=== PATIENT | male | born 1960 | race African-American/Black ===

== ENCOUNTER 2017-07-25 15:12 | Emergency (ER) | payer MEDICAID ==
[~2017-07-25] VITALS: Ht 177.8 cm; Wt 150.0 kg
[~2017-07-25 15:12] MED LIST: ASPI-1158; BENZ1TAB7; FURO40TA5 PO; OMEP20CA10 PO; POTA20TA82 PO; THIO100T
[2017-07-25 17:29] LABS: CHLORIDE 103 mEq/L (98-107); EOSINOPHILS % 0.7 % (0.0-5.0); HEMATOCRIT. 36.3 % (42.0-52.0); HEMOGLOBIN. 12.4 g/dL (14.0-18.0); MEAN CORPUSCULAR HEMOGLOBIN 28.6 pg (28.0-32.0); MEAN PLATELET VOLUME 7.4 fl (7.4-10.4); MONOCYTES % 9.3 % (2.0-8.0); PLATELET 297 x1000/uL (130-400); RED BLOOD CELL COUNT 4.32 mill/uL (4.7-6.1); RED CELL DISTRIBUTION WIDTH 14.9 % (11.6-14.6)
[2017-07-25 17:33] LABS: CARBON DIOXIDE 28 mEq/L (21-32)
[2017-07-25 17:39] LABS: TROPONIN I < 0.02 ng/mL (0.00-0.04)
[2017-07-25 20:09] VITALS: BP 137/80
== END 2017-07-25 20:44 | disposition home or self-care (01) ==
LOC: ER 15:30
DX: R55 Syncope and collapse (principal); M25.562 Pain in left knee; M25.561 Pain in right knee; I10 Essential (primary) hypertension; E78.00 Pure hypercholesterolemia, unspecified; I44.0 Atrioventricular block, first degree; D64.9 Anemia, unspecified; Z79.82 Long term (current) use of aspirin; E66.01 Morbid (severe) obesity due to excess calories; Z68.42 Body mass index [BMI] 45.0-49.9, adult; W01.0XXA Fall on same level from slipping, tripping and stumbling without subsequent striking against object, initial encounter; Y92.018 Other place in single-family (private) house as the place of occurrence of the external cause
CPT/HCPCS: 36415; 71045; 80053; 83880; 84484; 85025; 93005; 99285; Z7610

== ENCOUNTER 2018-06-25 11:47 | Inpatient (IN) | payer MEDICAID ==
[~2018-06-25] VITALS: Ht 182.9 cm; Wt 169.2 kg
[~2018-06-25 11:47] MED LIST changes: -ASPI-1158; +ASPI-1158 PO; -BENZ1TAB7; +BENZ1TAB7 PO; -THIO100T; +THIO100T PO
[2018-06-25 12:47] LABS: HEMATOCRIT. 39.4 % (42.0-52.0); HEMOGLOBIN. 13.1 g/dL (14.0-18.0); MEAN CORPUSCULAR HEMOGLOBIN 28.5 pg (28.0-32.0); MEAN CORPUSCULAR VOLUME 85.9 fL (80.0-94.0); MEAN PLATELET VOLUME 7.4 fl (7.4-10.4); PLATELET 240 x1000/uL (130-400); RED BLOOD CELL COUNT 4.58 mill/uL (4.7-6.1); RED CELL DISTRIBUTION WIDTH 14.5 % (11.6-14.6)
[2018-06-25 12:50] LABS: CHLORIDE 104 mEq/L (98-107)
[2018-06-25 12:53] LABS: ETHANOL BLOOD < 10 mg/dL
[2018-06-25 12:58] LABS: CREATINE KINASE 93 IU/L (39-308); CREATINE KINASE MB FRACTION < 1.0 ng/mL (0.5-3.6)
[2018-06-25 13:00] LABS: BETA HYDROXYBUTYRATE 0.1 mMol/L (0.0-0.3)
[2018-06-25 13:04] LABS: INR 1.1; PROTHROMBIN TIME 11.3 sec (9.1-11.1)
[2018-06-25 13:18] LABS: PLATELET ESTIMATE NORMAL
[2018-06-25] MEDS ORDERED: VANCOMYCIN 1 G PREMIX 200 ML IV SCH (14:00)
[2018-06-25] MEDS ORDERED: PIPERACILLIN/TAZ 3.375G PREMIX 50 ML IV ONE (14:00)
[2018-06-25] MEDS: LORAZEPAM 2MG/ML CPJ IV ONE ×2 (14:27→14:28)
[2018-06-25 14:34] LABS: CLARITY URINE CLEAR (CLEAR); COLOR URINE YELLOW (YELLOW); KETONES URINE NEGATIVE (NEGATIVE); LEUKOCYTE ESTERASE URINE NEGATIVE (NEGATIVE); NITRITE URINE NEGATIVE (NEGATIVE); OCCULT BLOOD URINE NEGATIVE (NEGATIVE); PROTEIN URINE NEGATIVE (NEGATIVE); SPECIFIC GRAVITY URINE 1.019 (1.005-1.030)
[2018-06-25 14:51] LABS: *AMPHETAMINES SCREEN URINE NEGATIVE (NEGATIVE); *BARBITURATES SCREEN URINE NEGATIVE (NEGATIVE); *BENZODIAZEPINES SCREEN URINE NEGATIVE (NEGATIVE); *COCAINE SCREEN URINE NEGATIVE (NEGATIVE); METHADONE URINE SCREEN NEGATIVE (NEGATIVE); OPIATES URINE SCREEN NEGATIVE (NEGATIVE)
[2018-06-25 14:52] LABS: CANNABINOID URINE SCREEN NEGATIVE (NEGATIVE); PHENCYCLIDINE URINE SCREEN PRESUMTIVE POSITIVE (NEGATIVE)
[2018-06-25 15:45] VITALS: BP 105/70
[2018-06-25 16:00] VITALS: BP 101/60
[2018-06-25 16:33] VITALS: BP 101/60
[2018-06-25 18:00] VITALS: BP 101/60
[2018-06-25] MEDS ORDERED: INFLUENZA VIRUS VACCINE(AFLURIA) 0.5ML SYR IM ONE (18:15)
[2018-06-25] MEDS ORDERED: PNEUMOCOCCAL 23-VAL P-SAC VAC 0.5 ML IM ONE (18:15)
[2018-06-25 20:00] VITALS: BP 113/61
[2018-06-25 22:32] LABS: HEPATITIS B SURFACE ANTIGEN NEGATIVE
[2018-06-25 23:02] LABS: HEPATITIS A AB IGM NEGATIVE (NEGATIVE)
[2018-06-26] VITALS: BP 110/70
[2018-06-26] MEDS ORDERED: DEXTROSE 50% WATER 50ML SYRINGE IV PRN
[2018-06-26] MEDS: SODIUM CHLORIDE 0.9% 1,000 ML IV SCH ×2 (00:52→13:30)
[2018-06-26 04:00] VITALS: BP 112/68
[2018-06-26] MEDS: BLOOD SUGAR DIAGNOSTIC STRIP TEST SCH ×2 (05:57→12:54)
[2018-06-26 06:44] LABS: HEMATOCRIT. 35.1 % (42.0-52.0); HEMOGLOBIN. 11.9 g/dL (14.0-18.0); MEAN CORPUSCULAR HEMOGLOBIN 28.9 pg (28.0-32.0); MEAN PLATELET VOLUME 7.8 fl (7.4-10.4); PLATELET 210 x1000/uL (130-400); RED BLOOD CELL COUNT 4.13 mill/uL (4.7-6.1)
[2018-06-26 06:57] LABS: CHLORIDE 105 mEq/L (98-107)
[2018-06-26 07:04] LABS: LDL CHOLESTEROL 38 mg/dL (5-100)
[2018-06-26 07:07] LABS: HDL CHOLESTEROL 54 mg/dL (40-59)
[2018-06-26 08:00] VITALS: BP 123/56
[2018-06-26] MEDS: INSULIN LISPRO 100 UNITS/ML SUBCUT SCH ×2 (08:10→12:54)
[2018-06-26] MEDS: ENOXAPARIN 40MG/0.4ML SYR SUBCUT SCH ×2 (09:57→21:28)
[2018-06-26] MEDS: ONDANSETRON HCL 4MG/2ML INJ IV PRN (10:08)
[2018-06-26] MEDS ORDERED: POTASSIUM CHLORIDE 10MEQ TABLET SR PO SCH (10:15)
[2018-06-26 11:28] LABS: PLATELET ESTIMATE NORMAL
[2018-06-26 16:00] VITALS: BP 95/59
[2018-06-26] MEDS ORDERED: HYDROCODONE/ACETAMINOPHEN 5/325MG TABLET PO PRN (16:00)
[2018-06-26] MEDS: PANTOPRAZOLE SODIUM 40 MG/VIAL IV SCH (16:40)
[2018-06-26] MEDS ORDERED: VANCOMYCIN 2,000 MG in DEXT 5% WATER 500 ML IV SCH (18:00)
[2018-06-26 20:00] VITALS: BP 117/59
[2018-06-26] MEDS ORDERED: INSULIN GLARGINE UD 100 UNITS/ML SYR SUBCUT SCH ×2 (21:00→22:00)
[2018-06-27] VITALS: BP 115/60
[2018-06-27] MEDS: ONDANSETRON HCL 4MG/2ML INJ IV PRN ×2 (00:05→06:03)
[2018-06-27] MEDS: SILVER SULFADIAZINE 1% CREAM 25GM TOP SCH ×2 (00:09→08:22)
[2018-06-27] MEDS: SODIUM CHLORIDE 0.9% 1,000 ML IV SCH ×2 (02:00→14:30)
[2018-06-27] MEDS: LINEZOLID 600 MG PREMIX 300 ML IV SCH ×2 (03:24→18:21)
[2018-06-27 04:00] VITALS: BP 109/67
[2018-06-27 06:41] LABS: HEMOGLOBIN. 11.9 g/dL (14.0-18.0); MEAN CORPUSCULAR HEMOGLOBIN 28.9 pg (28.0-32.0); MEAN CORPUSCULAR VOLUME 87.8 fL (80.0-94.0); PLATELET 204 x1000/uL (130-400); RED CELL DISTRIBUTION WIDTH 14.9 % (11.6-14.6)
[2018-06-27 06:47] LABS: CHLORIDE 106 mEq/L (98-107)
[2018-06-27 08:00] VITALS: BP 117/60
[2018-06-27] MEDS: ENOXAPARIN 40MG/0.4ML SYR SUBCUT SCH ×2 (08:20→20:50)
[2018-06-27] MEDS: PANTOPRAZOLE SODIUM 40 MG/VIAL IV SCH (08:20)
[2018-06-27 12:31] VITALS: BP 113/60
[2018-06-27 16:52] VITALS: BP 128/71
[2018-06-27 20:00] VITALS: BP 121/68
[2018-06-28] VITALS: BP 141/63
[2018-06-28 04:00] VITALS: BP 138/61
[2018-06-28] MEDS: LINEZOLID 600 MG PREMIX 300 ML IV SCH (06:22)
[2018-06-28] MEDS: SODIUM CHLORIDE 0.9% 1,000 ML IV SCH ×2 (06:27→14:36)
[2018-06-28 06:30] LABS: BASOPHILS % 1.1 % (0.0-2.0); EOSINOPHILS % 3.4 % (0.0-5.0); HEMATOCRIT. 33.9 % (42.0-52.0); HEMOGLOBIN. 11.3 g/dL (14.0-18.0); LYMPHOCYTES % 12.5 % (20.0-50.0); MEAN CORPUSCULAR HEMOGLOBIN 28.6 pg (28.0-32.0); MEAN CORPUSCULAR VOLUME 85.8 fL (80.0-94.0); MEAN PLATELET VOLUME 8.1 fl (7.4-10.4); MONOCYTES % 9.9 % (2.0-8.0); NEUTROPHILS % 73.1 % (40.0-76.0); PLATELET 211 x1000/uL (130-400); RED BLOOD CELL COUNT 3.95 mill/uL (4.7-6.1); RED CELL DISTRIBUTION WIDTH 14.9 % (11.6-14.6)
[2018-06-28 06:38] LABS: CHLORIDE 109 mEq/L (98-107)
[2018-06-28 08:00] VITALS: BP 120/51
[2018-06-28] MEDS: PANTOPRAZOLE SODIUM 40 MG/VIAL IV SCH (09:11)
[2018-06-28] MEDS: ENOXAPARIN 40MG/0.4ML SYR SUBCUT SCH ×2 (09:12→20:31)
[2018-06-28] MEDS: SILVER SULFADIAZINE 1% CREAM 25GM TOP SCH (09:13)
[2018-06-28 12:00] VITALS: BP 132/66
[2018-06-28] MEDS: CEFTRIAXONE 2 G in DEXT 5% WATER 100 ML IV SCH (14:26)
[2018-06-28 16:00] VITALS: BP 132/66
[2018-06-28 20:00] VITALS: BP 114/60
[2018-06-28] MEDS ORDERED: IOHEXOL-300 100 ML BOTTLE ONE (22:09)
[2018-06-29] VITALS: BP 122/67
[2018-06-29 04:00] VITALS: BP 142/52
[2018-06-29] MEDS: SODIUM CHLORIDE 0.9% 1,000 ML IV SCH ×2 (04:00→12:33)
[2018-06-29 06:23] LABS: BASOPHILS % 0.7 % (0.0-2.0); EOSINOPHILS % 2.7 % (0.0-5.0); HEMATOCRIT. 34.7 % (42.0-52.0); HEMOGLOBIN. 11.6 g/dL (14.0-18.0); LYMPHOCYTES % 15.8 % (20.0-50.0); MEAN CORPUSCULAR HEMOGLOBIN 28.4 pg (28.0-32.0); MEAN CORPUSCULAR VOLUME 84.9 fL (80.0-94.0); MEAN PLATELET VOLUME 7.5 fl (7.4-10.4); MONOCYTES % 11.3 % (2.0-8.0); NEUTROPHILS % 69.5 % (40.0-76.0); PLATELET 244 x1000/uL (130-400); RED BLOOD CELL COUNT 4.08 mill/uL (4.7-6.1); RED CELL DISTRIBUTION WIDTH 14.7 % (11.6-14.6)
[2018-06-29 06:36] LABS: CHLORIDE 109 mEq/L (98-107)
[2018-06-29 07:33] LABS: PLATELET ESTIMATE NORMAL
[2018-06-29 08:00] VITALS: BP 115/56
[2018-06-29] MEDS: SILVER SULFADIAZINE 1% CREAM 25GM TOP SCH (08:47)
[2018-06-29] MEDS: PANTOPRAZOLE SODIUM 40 MG/VIAL IV SCH (08:47)
[2018-06-29] MEDS: ENOXAPARIN 40MG/0.4ML SYR SUBCUT SCH ×2 (08:47→21:05)
[2018-06-29] MEDS: CEFTRIAXONE 2 G in DEXT 5% WATER 100 ML IV SCH (08:47)
[2018-06-29 12:00] VITALS: BP 110/59
[2018-06-29] MEDS ORDERED: POTASSIUM CHLORIDE 20MEQ/PACKET PO ONE (12:15)
[2018-06-29] MEDS ORDERED: POTASSIUM CHLORIDE INJ 40 MEQ in DEXT 5% WATER 500 ML IV NR (14:00)
[2018-06-29 16:00] VITALS: BP 145/70
[2018-06-29] MEDS ORDERED: BISACODYL 10MG SUPP PR PRN (17:15)
[2018-06-29] MEDS ORDERED: SIMV20TA6 PO (17:30)
[2018-06-29] MEDS ORDERED: DOCU-276 PO (17:30)
[2018-06-29] MEDS ORDERED: HYDR12.529 PO (17:30)
[2018-06-29 20:00] VITALS: BP 123/57
[2018-06-30] VITALS: BP 117/64
[2018-06-30 04:00] VITALS: BP 132/50
[2018-06-30] MEDS: SODIUM CHLORIDE 0.9% 1,000 ML IV SCH ×2 (05:44→20:40)
[2018-06-30 08:00] VITALS: BP 136/46
[2018-06-30] MEDS: FAMOTIDINE 20MG/2ML VIAL IV SCH ×2 (08:28→20:40)
[2018-06-30] MEDS: ENOXAPARIN 40MG/0.4ML SYR SUBCUT SCH ×2 (08:28→20:40)
[2018-06-30] MEDS: SILVER SULFADIAZINE 1% CREAM 25GM TOP SCH (08:29)
[2018-06-30 09:35] LABS: BASOPHILS % 1.1 % (0.0-2.0); EOSINOPHILS % 2.9 % (0.0-5.0); HEMOGLOBIN. 11.8 g/dL (14.0-18.0); LYMPHOCYTES % 17.7 % (20.0-50.0); MEAN CORPUSCULAR HEMOGLOBIN 28.7 pg (28.0-32.0); MEAN CORPUSCULAR VOLUME 85.1 fL (80.0-94.0); MEAN PLATELET VOLUME 7.9 fl (7.4-10.4); MONOCYTES % 11.4 % (2.0-8.0); NEUTROPHILS % 66.9 % (40.0-76.0); PLATELET 247 x1000/uL (130-400); RED BLOOD CELL COUNT 4.11 mill/uL (4.7-6.1); RED CELL DISTRIBUTION WIDTH 14.2 % (11.6-14.6)
[2018-06-30 10:02] LABS: CHLORIDE 110 mEq/L (98-107)
[2018-06-30 12:00] VITALS: BP 104/48
[2018-06-30] MEDS: CEFTRIAXONE 2 G in DEXTROSE 5% WATER 50 ML IV SCH (12:58)
[2018-06-30] MEDS ORDERED: POTASSIUM CHLORIDE INJ 40 MEQ in DEXT 5% WATER 250 ML IV NR (14:00)
[2018-06-30 16:01] VITALS: BP 113/54
[2018-06-30 20:00] VITALS: BP 125/55
[2018-07-01] VITALS: BP 128/61
[2018-07-01 04:00] VITALS: BP 145/59
[2018-07-01] MEDS ORDERED: POTASSIUM CHLORIDE 20MEQ TABLET SR PO SCH (05:00)
[2018-07-01] MEDS: SODIUM CHLORIDE 0.9% 1,000 ML IV SCH (05:12)
[2018-07-01 08:00] VITALS: BP 152/55
[2018-07-01] MEDS: FAMOTIDINE 20MG/2ML VIAL IV SCH (09:03)
[2018-07-01] MEDS: ENOXAPARIN 40MG/0.4ML SYR SUBCUT SCH (09:04)
[2018-07-01] MEDS: SILVER SULFADIAZINE 1% CREAM 25GM TOP SCH (09:04)
[2018-07-01] MEDS: CEFTRIAXONE 2 G in DEXTROSE 5% WATER 50 ML IV SCH (11:09)
[2018-07-01 12:25] VITALS: BP 141/66
[2018-07-01 14:46] VITALS: BP 141/66
== END 2018-07-01 17:23 | disposition home health service (06) | DRG 720 ==
LOC: ER 11:53 → 7WST 14:02 → EDBEDREQ 14:06 → ENRESERV 15:17
PROVIDERS: ADMIT Internal Medicine; ATTEND Internal Medicine
PROC: 02HV33Z Insertion of Infusion Device into Superior Vena Cava, Percutaneous Approach (ICD-10-PCS; principal; 2018-06-30)
PROC: B518ZZA Fluoroscopy of Superior Vena Cava, Guidance (ICD-10-PCS; 2018-06-30)
PROC: B548ZZA Ultrasonography of Superior Vena Cava, Guidance (ICD-10-PCS; 2018-06-30)
DX: A40.1 Sepsis due to streptococcus, group B (principal); G93.41 Metabolic encephalopathy; N17.9 Acute kidney failure, unspecified; E46 Unspecified protein-calorie malnutrition; K56.7 Ileus, unspecified; E27.8 Other specified disorders of adrenal gland; I11.0 Hypertensive heart disease with heart failure; I50.9 Heart failure, unspecified; E66.01 Morbid (severe) obesity due to excess calories; E11.65 Type 2 diabetes mellitus with hyperglycemia; I87.2 Venous insufficiency (chronic) (peripheral); E87.6 Hypokalemia; E78.5 Hyperlipidemia, unspecified; B35.1 Tinea unguium; F16.10 Hallucinogen abuse, uncomplicated; J45.909 Unspecified asthma, uncomplicated; D64.9 Anemia, unspecified; K76.9 Liver disease, unspecified; K80.20 Calculus of gallbladder without cholecystitis without obstruction; E78.00 Pure hypercholesterolemia, unspecified; N28.1 Cyst of kidney, acquired; M17.11 Unilateral primary osteoarthritis, right knee; Z68.43 Body mass index [BMI] 50.0-59.9, adult; Z79.899 Other long term (current) drug therapy; Z71.3 Dietary counseling and surveillance; Z79.82 Long term (current) use of aspirin
CPT/HCPCS: 36415; 36569; 71045; 73562; 74018; 74178; 76700; 76937; 77001; 80048; 80061; 80305; 82010; 82140; 82550; 82553; 82962; 83036; 83605; 83735; 83880; 84132; 84145; 84443; 84484; 86705; 86709; 86803; 87077; 87186; 87340; 90686; 90732; 93005; 93306; 93970; 96365; 96367; 97116; 97162; 97530; 99285; C1725; C9113; G0482; J0696; J1650; J1815; J2020; J2405; J2543; J3370; J3480; J3490; J7030; J7060; Q9967

== ENCOUNTER 2018-07-06 20:02 | Inpatient (IN) | payer MEDICAID ==
[~2018-07-06] VITALS: Ht 188 cm; Wt 159.7 kg
[2018-07-06 04:30] VITALS: BP 150/76
[~2018-07-06 20:02] MED LIST changes: +DOCU-276 PO; +SIMV20TA6 PO
[2018-07-06 22:12] LABS: BASOPHILS % 1.2 % (0.0-2.0); EOSINOPHILS % 1.5 % (0.0-5.0); HEMATOCRIT. 34.7 % (42.0-52.0); HEMOGLOBIN. 11.6 g/dL (14.0-18.0); LYMPHOCYTES % 14.7 % (20.0-50.0); MEAN CORPUSCULAR HEMOGLOBIN 28.3 pg (28.0-32.0); MEAN CORPUSCULAR VOLUME 84.7 fL (80.0-94.0); MEAN PLATELET VOLUME 7.3 fl (7.4-10.4); MONOCYTES % 8.2 % (2.0-8.0); NEUTROPHILS % 74.4 % (40.0-76.0); PLATELET 371 x1000/uL (130-400); RED CELL DISTRIBUTION WIDTH 14.8 % (11.6-14.6)
[2018-07-06 22:15] LABS: CHLORIDE 108 mEq/L (98-107)
[2018-07-06 22:17] LABS: INR 1.1; PARTIAL THROMBOPLASTIN TIME 24.8 sec (23.4-31.0)
[2018-07-06 22:21] LABS: ETHANOL BLOOD < 10 mg/dL
[2018-07-06] MEDS ORDERED: KCL 20MEQ/100ML PREMIX 100 ML IV ONE (22:45)
[2018-07-06] MEDS ORDERED: POTASSIUM CHLORIDE 20MEQ TABLET SR PO ONE (22:45)
[2018-07-06] MEDS ORDERED: MAGNESIUM/ALUMINUM HYDROXIDE/SIMETHICONE 30ML UDC PO PRN (23:15)
[2018-07-06] MEDS ORDERED: IPRATROPIUM/ALBUTEROL 0.5-3(2.5)MG/3ML NEB INH PRN (23:15)
[2018-07-06] MEDS ORDERED: ONDANSETRON HCL 4MG/2ML INJ IV PRN (23:15)
[2018-07-06] MEDS ORDERED: CLONIDINE 0.1MG TABLET PO PRN (23:15)
[2018-07-07] VITALS (60 sets, daily range): BP systolic 52–201; BP diastolic 35–124
[2018-07-07] MEDS ORDERED: LORAZEPAM 2MG/ML CPJ IV PRN ×2 (06:45→08:00)
[2018-07-07] MEDS: PANTOPRAZOLE SODIUM 40 MG/VIAL IV SCH (08:01)
[2018-07-07] MEDS: PROPOFOL 10MG/ML 100ML 100 ML IV PRN ×2 (08:02→12:36)
[2018-07-07 08:07] LABS: EOSINOPHILS % 0.1 % (0.0-5.0); HEMATOCRIT. 35.6 % (42.0-52.0); HEMOGLOBIN. 11.8 g/dL (14.0-18.0); LYMPHOCYTES % 7.2 % (20.0-50.0); MEAN CORPUSCULAR HEMOGLOBIN 28.1 pg (28.0-32.0); MEAN CORPUSCULAR VOLUME 84.9 fL (80.0-94.0); MEAN PLATELET VOLUME 6.8 fl (7.4-10.4); MONOCYTES % 6.9 % (2.0-8.0); NEUTROPHILS % 84.8 % (40.0-76.0); PLATELET 348 x1000/uL (130-400); RED BLOOD CELL COUNT 4.19 mill/uL (4.7-6.1); RED CELL DISTRIBUTION WIDTH 14.8 % (11.6-14.6)
[2018-07-07 08:12] LABS: CHLORIDE 109 mEq/L (98-107)
[2018-07-07 08:16] LABS: BG CARBOXYHEMOGLOBIN 0.2 % (0.5-1.5); BG DEOXYHEMOGLOBIN 1.1 % (0.0-5.0); BG FRACTION INSPIRED OXYGEN 100; BG HCO3 ACT 29.8 mmol/L (22.0-26.0); BG METHEMOGLOBIN 0.3 % (0.0-1.5); BG OXYGEN SATURATION 98.9 % (92.0-98.5); BG OXYHEMOGLOBIN 98.4 % (94.0-97.0); BG PH 7.439 (7.350-7.450); BG PO2 216.8 mmHg (75.0-100.0); BG SAMPLE SITE RIGHT BRACHIAL; BG TIDAL VOLUME(mL) 500 mL; BG TOTAL HEMOGLOBIN 12.2 g/dL (12.0-18.0); BG VENT MODE VENT - A/C; BG VENT RATE 16 set
[2018-07-07 08:20] LABS: LDL CHOLESTEROL 73 mg/dL (5-100)
[2018-07-07 08:21] LABS: CREATINE KINASE 202 IU/L (39-308); HDL CHOLESTEROL 42 mg/dL (40-59)
[2018-07-07] MEDS ORDERED: ENOXAPARIN 40MG/0.4ML SYR SUBCUT SCH (09:00)
[2018-07-07] MEDS ORDERED: NOREPINEPHRINE 8 MG in DEXT 5% WATER 242 ML IV PRN (09:30)
[2018-07-07] MEDS ORDERED: POTASSIUM CHLORIDE 20MEQ/PACKET PO NR ×3 (09:30→16:30)
[2018-07-07 10:02] LABS: PHOSPHORUS 3.4 mg/dL (2.5-4.9)
[2018-07-07] MEDS ORDERED: INSULIN LISPRO 100 UNITS/ML SUBCUT SCH ×2 (10:30)
[2018-07-07] MEDS ORDERED: BLOOD SUGAR DIAGNOSTIC STRIP TEST SCH ×2 (10:30)
[2018-07-07] MEDS ORDERED: DEXTROSE 50% WATER 50ML SYRINGE IV PRN (10:30)
[2018-07-07] MEDS ORDERED: POTASSIUM CHLORIDE INJ 40 MEQ in DEXT 5% WATER 250 ML IV SCH (11:00)
[2018-07-07 11:20] LABS: CLARITY URINE CLOUDY (CLEAR); COLOR URINE YELLOW (YELLOW); KETONES URINE TRACE (NEGATIVE); LEUKOCYTE ESTERASE URINE NEGATIVE (NEGATIVE); NITRITE URINE NEGATIVE (NEGATIVE); OCCULT BLOOD URINE 1+ (NEGATIVE); PROTEIN URINE 2+ (NEGATIVE); SPECIFIC GRAVITY URINE 1.022 (1.005-1.030)
[2018-07-07] MEDS: INSULIN LISPRO 100 UNITS/ML SUBCUT SCH ×2 (11:23→18:00)
[2018-07-07] MEDS: BLOOD SUGAR DIAGNOSTIC STRIP TEST SCH ×2 (11:23→18:00)
[2018-07-07] MEDS: METRONIDAZOLE 500 MG PREMIX 100 ML IV SCH ×2 (11:29→20:26)
[2018-07-07] MEDS: CEFEPIME 1,000 MG in DEXTROSE 5% WATER 50 ML IV SCH ×2 (11:29→22:47)
[2018-07-07] MEDS: IPRATROPIUM/ALBUTEROL 0.5-3(2.5)MG/3ML NEB HHN PRN ×3 (12:25→20:16)
[2018-07-07 12:31] LABS: *AMPHETAMINES SCREEN URINE NEGATIVE (NEGATIVE); *BARBITURATES SCREEN URINE NEGATIVE (NEGATIVE); *BENZODIAZEPINES SCREEN URINE NEGATIVE (NEGATIVE); *COCAINE SCREEN URINE NEGATIVE (NEGATIVE)
[2018-07-07 12:32] LABS: CANNABINOID URINE SCREEN NEGATIVE (NEGATIVE); METHADONE URINE SCREEN NEGATIVE (NEGATIVE); OPIATES URINE SCREEN NEGATIVE (NEGATIVE); PHENCYCLIDINE URINE SCREEN PRESUMTIVE POSITIVE (NEGATIVE)
[2018-07-07] MEDS ORDERED: EPINEPHRINE 0.1MG/ML (1:10,000) 10ML SYR ONE (15:19)
[2018-07-07] MEDS ORDERED: SODIUM BICARBONATE 8.4% 1 MEQ/ML 50ML SYR IV ONE (15:19)
[2018-07-07] MEDS ORDERED: METRONIDAZOLE 500 MG PREMIX 100 ML IV SCH (16:00)
[2018-07-07] MEDS ORDERED: LEVETIRACETAM 500 MG in SODIUM CHLORIDE 0.9% 100 ML IV SCH (16:00)
[2018-07-07] MEDS ORDERED: MAGNESIUM 2 G PREMIX 50 ML IV NR (16:00)
[2018-07-07 16:08] LABS: CREATINE KINASE MB FRACTION 4.7 ng/mL (0.5-3.6)
[2018-07-07 16:31] LABS: HEPATITIS B SURFACE ANTIGEN NEGATIVE
[2018-07-07] MEDS: ENOXAPARIN 40MG/0.4ML SYR SUBCUT SCH (16:47)
[2018-07-07] MEDS ORDERED: POTASSIUM CHLORIDE INJ 40 MEQ in DEXT 5% WATER 250 ML IV NR (17:00)
[2018-07-07 17:01] LABS: HEPATITIS A AB IGM NEGATIVE (NEGATIVE)
[2018-07-07] MEDS: MULTIVITAMINS,THER W-MINERALS TABLET PO SCH (18:23)
[2018-07-07] MEDS: THIAMINE HCL 100MG TABLET PO SCH (18:23)
[2018-07-07] MEDS: FOLIC ACID 1MG TABLET PO SCH (18:23)
[2018-07-07] MEDS ORDERED: PHENYTOIN SODIUM 1,000 MG in SODIUM CHLORIDE 0.9% 100 ML IV NR (20:00)
[2018-07-07] MEDS ORDERED: ATROPINE SULFATE 1MG/10ML SYR IV ONE (20:15)
[2018-07-07] MEDS: IPRATROPIUM/ALBUTEROL 0.5-3(2.5)MG/3ML NEB HHN SCH (20:16)
[2018-07-07] MEDS ORDERED: ATROPINE SULFATE 1MG/10ML SYR IV NR (20:30)
[2018-07-07] MEDS ORDERED: LEVETIRACETAM 1,000 MG in SODIUM CHLORIDE 0.9% 100 ML IV SCH (21:00)
[2018-07-07] MEDS: LEVETIRACETAM 1,000 MG in SODIUM CHLORIDE 0.9% 100 ML IV SCH (22:34)
[2018-07-08] VITALS (69 sets, daily range): BP systolic 95–157; BP diastolic 46–87
[2018-07-08] MEDS: IPRATROPIUM/ALBUTEROL 0.5-3(2.5)MG/3ML NEB HHN SCH ×3 (01:19→14:33)
[2018-07-08] MEDS ORDERED: POTASSIUM CHLORIDE INJ 40 MEQ in DEXT 5% WATER 250 ML IV NR (02:00)
[2018-07-08] MEDS: METRONIDAZOLE 500 MG PREMIX 100 ML IV SCH ×3 (03:47→20:52)
[2018-07-08] MEDS: PROPOFOL 10MG/ML 100ML 100 ML IV PRN ×4 (04:14→22:42)
[2018-07-08 05:33] LABS: BASOPHILS % 1.2 % (0.0-2.0); EOSINOPHILS % 0.4 % (0.0-5.0); HEMATOCRIT. 34.3 % (42.0-52.0); HEMOGLOBIN. 11.2 g/dL (14.0-18.0); LYMPHOCYTES % 14.9 % (20.0-50.0); MEAN CORPUSCULAR VOLUME 85.6 fL (80.0-94.0); MEAN PLATELET VOLUME 7.1 fl (7.4-10.4); MONOCYTES % 10.3 % (2.0-8.0); NEUTROPHILS % 73.2 % (40.0-76.0); PLATELET 330 x1000/uL (130-400); RED CELL DISTRIBUTION WIDTH 14.7 % (11.6-14.6)
[2018-07-08 05:43] LABS: CHLORIDE 112 mEq/L (98-107)
[2018-07-08] MEDS: INSULIN LISPRO 100 UNITS/ML SUBCUT SCH ×4 (06:00→18:00)
[2018-07-08] MEDS: BLOOD SUGAR DIAGNOSTIC STRIP TEST SCH ×4 (06:59→18:46)
[2018-07-08] MEDS ORDERED: KCL 20MEQ/100ML PREMIX 100 ML IV NR (08:00)
[2018-07-08] MEDS: THIAMINE HCL 100MG TABLET PO SCH (08:56)
[2018-07-08] MEDS: LEVETIRACETAM 1,000 MG in SODIUM CHLORIDE 0.9% 100 ML IV SCH ×2 (08:56→22:21)
[2018-07-08] MEDS: ENOXAPARIN 40MG/0.4ML SYR SUBCUT SCH ×2 (08:56→22:20)
[2018-07-08] MEDS: PANTOPRAZOLE SODIUM 40 MG/VIAL IV SCH (08:56)
[2018-07-08] MEDS: MULTIVITAMINS,THER W-MINERALS TABLET PO SCH (08:56)
[2018-07-08] MEDS: FOLIC ACID 1MG TABLET PO SCH (08:56)
[2018-07-08] MEDS ORDERED: KCL 20MEQ/100ML PREMIX 100 ML IV SCH (09:00)
[2018-07-08 09:21] LABS: BG BASE EXCESS 5.3 mmol/L (-2.0-2.0); BG CARBOXYHEMOGLOBIN 0.3 % (0.5-1.5); BG DEOXYHEMOGLOBIN 4.5 % (0.0-5.0); BG FRACTION INSPIRED OXYGEN 40; BG METHEMOGLOBIN 0.3 % (0.0-1.5); BG OXYGEN SATURATION 95.5 % (92.0-98.5); BG OXYHEMOGLOBIN 94.9 % (94.0-97.0); BG PCO2 44.3 mmHg (35.0-45.0); BG PH 7.448 (7.350-7.450); BG SAMPLE SITE RIGHT RADIAL; BG TIDAL VOLUME(mL) 500 mL; BG TOTAL HEMOGLOBIN 11.1 g/dL (12.0-18.0); BG VENT MODE VENT - A/C; BG VENT RATE 16 set
[2018-07-08] MEDS ORDERED: POTASSIUM CHLORIDE 20MEQ/PACKET PO SCH (10:00)
[2018-07-08 10:11] LABS: HIV SCREEN 4G Non Reactive (Non Reactive)
[2018-07-08] MEDS ORDERED: PHENYTOIN SODIUM 700 MG in SODIUM CHLORIDE 0.9% 100 ML IV ONE (11:00)
[2018-07-08] MEDS: CEFEPIME 1,000 MG in DEXTROSE 5% WATER 50 ML IV SCH ×2 (11:40→23:23)
[2018-07-08] MEDS ORDERED: POTASSIUM CHLORIDE 20MEQ/PACKET PO NR (16:30)
[2018-07-08] MEDS: NYSTATIN POWDER 15GM TOP SCH (17:30)
[2018-07-08] MEDS: PHENYTOIN SODIUM EXTENDED 100MG CAPSULE PO SCH (22:19)
[2018-07-08] MEDS ORDERED: POTASSIUM CHLORIDE INJ 30 MEQ in DEXT 5% WATER 250 ML IV NR (22:30)
[2018-07-09] VITALS (67 sets, daily range): BP systolic 96–142; BP diastolic 52–105
[2018-07-09] MEDS: ACETAMINOPHEN 325MG TABLET PO PRN (01:02)
[2018-07-09] MEDS: IPRATROPIUM/ALBUTEROL 0.5-3(2.5)MG/3ML NEB HHN SCH ×4 (02:21→20:32)
[2018-07-09] MEDS: PROPOFOL 10MG/ML 100ML 100 ML IV PRN ×5 (03:18→21:07)
[2018-07-09] MEDS: METRONIDAZOLE 500 MG PREMIX 100 ML IV SCH ×3 (03:33→20:06)
[2018-07-09] MEDS: BLOOD SUGAR DIAGNOSTIC STRIP TEST SCH ×5 (06:00→23:47)
[2018-07-09] MEDS: INSULIN LISPRO 100 UNITS/ML SUBCUT SCH ×5 (06:00→23:47)
[2018-07-09 06:44] LABS: BASOPHILS % 0.9 % (0.0-2.0); EOSINOPHILS % 1.1 % (0.0-5.0); HEMATOCRIT. 31.9 % (42.0-52.0); HEMOGLOBIN. 10.7 g/dL (14.0-18.0); LYMPHOCYTES % 14.9 % (20.0-50.0); MEAN CORPUSCULAR HEMOGLOBIN 28.7 pg (28.0-32.0); MEAN CORPUSCULAR VOLUME 85.9 fL (80.0-94.0); MEAN PLATELET VOLUME 7.5 fl (7.4-10.4); MONOCYTES % 11.8 % (2.0-8.0); NEUTROPHILS % 71.3 % (40.0-76.0); PLATELET 323 x1000/uL (130-400); RED BLOOD CELL COUNT 3.71 mill/uL (4.7-6.1)
[2018-07-09 06:50] LABS: CHLORIDE 113 mEq/L (98-107)
[2018-07-09 07:03] LABS: PHOSPHORUS 2.1 mg/dL (2.5-4.9)
[2018-07-09 08:35] LABS: BG BASE EXCESS 4.5 mmol/L (-2.0-2.0); BG CARBOXYHEMOGLOBIN 0.1 % (0.5-1.5); BG DEOXYHEMOGLOBIN 5.1 % (0.0-5.0); BG FRACTION INSPIRED OXYGEN 40; BG HCO3 ACT 29.2 mmol/L (22.0-26.0); BG METHEMOGLOBIN 0.2 % (0.0-1.5); BG OXYGEN SATURATION 94.9 % (92.0-98.5); BG OXYHEMOGLOBIN 94.6 % (94.0-97.0); BG PCO2 44.1 mmHg (35.0-45.0); BG PH 7.439 (7.350-7.450); BG PO2 73.1 mmHg (75.0-100.0); BG SAMPLE SITE RIGHT RADIAL; BG TIDAL VOLUME(mL) 500 mL; BG TOTAL HEMOGLOBIN 11.1 g/dL (12.0-18.0); BG VENT MODE VENT - A/C; BG VENT RATE 16 set
[2018-07-09] MEDS: PANTOPRAZOLE SODIUM 40 MG/VIAL IV SCH (09:21)
[2018-07-09] MEDS: LEVETIRACETAM 1,000 MG in SODIUM CHLORIDE 0.9% 100 ML IV SCH ×2 (09:21→21:06)
[2018-07-09] MEDS: MULTIVITAMINS,THER W-MINERALS TABLET PO SCH (09:21)
[2018-07-09] MEDS: FOLIC ACID 1MG TABLET PO SCH (09:22)
[2018-07-09] MEDS: ENOXAPARIN 40MG/0.4ML SYR SUBCUT SCH ×2 (09:22→21:06)
[2018-07-09] MEDS: NYSTATIN POWDER 15GM TOP SCH ×3 (09:22→17:23)
[2018-07-09] MEDS: THIAMINE HCL 100MG TABLET PO SCH (09:22)
[2018-07-09] MEDS: CEFEPIME 1,000 MG in DEXTROSE 5% WATER 50 ML IV SCH ×2 (10:25→22:20)
[2018-07-09] MEDS ORDERED: POTASSIUM PHOS,M-BASIC-D-BASIC 15 MMOL in DEXT 5% WATER 245 ML IV SCH (10:30)
[2018-07-09] MEDS: ACETYLCYSTEINE 100MG/ML 10% VIAL 4ML INH SCH (16:31)
[2018-07-09] MEDS: VANCOMYCIN HCL 1000 MG/20 ML ORAL PO SCH (18:58)
[2018-07-09] MEDS ORDERED: POTASSIUM CHLORIDE INJ 60 MEQ in DEXT 5% WATER 500 ML IV NR (19:00)
[2018-07-09] MEDS: PHENYTOIN SODIUM EXTENDED 100MG CAPSULE PO SCH (21:05)
[2018-07-10] VITALS (51 sets, daily range): BP systolic 46–146; BP diastolic 20–97
[2018-07-10] MEDS: VANCOMYCIN HCL 1000 MG/20 ML ORAL PO SCH ×5 (00:23→23:55)
[2018-07-10] MEDS: PROPOFOL 10MG/ML 100ML 100 ML IV PRN ×8 (01:03→23:26)
[2018-07-10] MEDS: IPRATROPIUM/ALBUTEROL 0.5-3(2.5)MG/3ML NEB HHN SCH ×4 (01:47→21:02)
[2018-07-10] MEDS: ACETYLCYSTEINE 100MG/ML 10% VIAL 4ML INH SCH ×3 (01:47→15:29)
[2018-07-10] MEDS: METRONIDAZOLE 500 MG PREMIX 100 ML IV SCH ×3 (03:58→19:59)
[2018-07-10] MEDS: ACETAMINOPHEN 325MG TABLET PO PRN (03:58)
[2018-07-10] MEDS: INSULIN LISPRO 100 UNITS/ML SUBCUT SCH ×3 (05:36→17:30)
[2018-07-10] MEDS: BLOOD SUGAR DIAGNOSTIC STRIP TEST SCH ×4 (05:36→23:55)
[2018-07-10 05:44] LABS: CHLORIDE 111 mEq/L (98-107)
[2018-07-10 05:45] LABS: BASOPHILS % 0.6 % (0.0-2.0); EOSINOPHILS % 2.3 % (0.0-5.0); HEMATOCRIT. 32.2 % (42.0-52.0); HEMOGLOBIN. 10.8 g/dL (14.0-18.0); LYMPHOCYTES % 13.4 % (20.0-50.0); MEAN CORPUSCULAR HEMOGLOBIN 28.8 pg (28.0-32.0); MEAN CORPUSCULAR VOLUME 86.1 fL (80.0-94.0); MEAN PLATELET VOLUME 8.1 fl (7.4-10.4); MONOCYTES % 10.7 % (2.0-8.0); PLATELET 282 x1000/uL (130-400); RED BLOOD CELL COUNT 3.74 mill/uL (4.7-6.1); RED CELL DISTRIBUTION WIDTH 14.8 % (11.6-14.6)
[2018-07-10] MEDS ORDERED: POTASSIUM CHLORIDE 20MEQ/PACKET NG SCH ×2 (07:15→14:45)
[2018-07-10 07:57] LABS: BG BASE EXCESS 4.6 mmol/L (-2.0-2.0); BG CARBOXYHEMOGLOBIN 0.3 % (0.5-1.5); BG DEOXYHEMOGLOBIN 5.7 % (0.0-5.0); BG FRACTION INSPIRED OXYGEN 40; BG HCO3 ACT 30.2 mmol/L (22.0-26.0); BG METHEMOGLOBIN 0.1 % (0.0-1.5); BG OXYGEN SATURATION 94.3 % (92.0-98.5); BG OXYHEMOGLOBIN 93.9 % (94.0-97.0); BG PCO2 49.8 mmHg (35.0-45.0); BG PH 7.401 (7.350-7.450); BG PO2 73.9 mmHg (75.0-100.0); BG SAMPLE SITE RIGHT RADIAL; BG TIDAL VOLUME(mL) 500 mL; BG TOTAL HEMOGLOBIN 10.7 g/dL (12.0-18.0); BG VENT MODE VENT - A/C; BG VENT RATE 16 set
[2018-07-10] MEDS: PANTOPRAZOLE SODIUM 40 MG/VIAL IV SCH (08:12)
[2018-07-10] MEDS: FOLIC ACID 1MG TABLET PO SCH (08:12)
[2018-07-10] MEDS: THIAMINE HCL 100MG TABLET PO SCH (08:12)
[2018-07-10] MEDS: ENOXAPARIN 40MG/0.4ML SYR SUBCUT SCH ×2 (08:12→21:28)
[2018-07-10] MEDS: MULTIVITAMINS,THER W-MINERALS TABLET PO SCH (08:12)
[2018-07-10] MEDS: LEVETIRACETAM 1,000 MG in SODIUM CHLORIDE 0.9% 100 ML IV SCH ×2 (08:25→21:28)
[2018-07-10] MEDS: NYSTATIN POWDER 15GM TOP SCH ×3 (08:25→15:40)
[2018-07-10] MEDS: CEFEPIME 1,000 MG in DEXTROSE 5% WATER 50 ML IV SCH ×2 (10:00→23:54)
[2018-07-10] MEDS ORDERED: PHENYTOIN SODIUM 700 MG in SODIUM CHLORIDE 0.9% 100 ML IV SCH (11:30)
[2018-07-10] MEDS: PHENYTOIN SODIUM EXTENDED 100MG CAPSULE PO SCH (21:28)
[2018-07-11] VITALS (47 sets, daily range): BP systolic 95–181; BP diastolic 50–129
[2018-07-11] MEDS: INSULIN LISPRO 100 UNITS/ML SUBCUT SCH ×4 (00:13→17:27)
[2018-07-11] MEDS: ACETAMINOPHEN 325MG TABLET PO PRN (00:13)
[2018-07-11] MEDS: IPRATROPIUM/ALBUTEROL 0.5-3(2.5)MG/3ML NEB HHN SCH ×3 (00:17→20:53)
[2018-07-11] MEDS: ACETYLCYSTEINE 100MG/ML 10% VIAL 4ML INH SCH ×3 (00:17→16:18)
[2018-07-11] MEDS: PROPOFOL 10MG/ML 100ML 100 ML IV PRN ×6 (02:02→22:29)
[2018-07-11] MEDS: IPRATROPIUM/ALBUTEROL 0.5-3(2.5)MG/3ML NEB HHN PRN ×3 (04:22→16:17)
[2018-07-11 05:33] LABS: BASOPHILS % 1.3 % (0.0-2.0); EOSINOPHILS % 3.7 % (0.0-5.0); HEMATOCRIT. 34.3 % (42.0-52.0); HEMOGLOBIN. 11.2 g/dL (14.0-18.0); LYMPHOCYTES % 22.4 % (20.0-50.0); MEAN CORPUSCULAR VOLUME 86.1 fL (80.0-94.0); MEAN PLATELET VOLUME 7.9 fl (7.4-10.4); MONOCYTES % 12.6 % (2.0-8.0); PLATELET 372 x1000/uL (130-400); RED BLOOD CELL COUNT 3.98 mill/uL (4.7-6.1); RED CELL DISTRIBUTION WIDTH 15.3 % (11.6-14.6)
[2018-07-11] MEDS: METRONIDAZOLE 500MG TABLET GT SCH ×3 (05:36→22:10)
[2018-07-11] MEDS: VANCOMYCIN HCL 1000 MG/20 ML ORAL PO SCH ×4 (05:36→23:45)
[2018-07-11 05:38] LABS: CHLORIDE 110 mEq/L (98-107)
[2018-07-11] MEDS: BLOOD SUGAR DIAGNOSTIC STRIP TEST SCH ×3 (06:18→17:27)
[2018-07-11 09:22] LABS: PHOSPHORUS 2.9 mg/dL (2.5-4.9)
[2018-07-11] MEDS: ENOXAPARIN 40MG/0.4ML SYR SUBCUT SCH ×2 (09:38→22:04)
[2018-07-11] MEDS: LEVETIRACETAM 1,000 MG in SODIUM CHLORIDE 0.9% 100 ML IV SCH ×2 (09:38→22:03)
[2018-07-11] MEDS: FOLIC ACID 1MG TABLET PO SCH (09:39)
[2018-07-11] MEDS: MULTIVITAMINS,THER W-MINERALS TABLET PO SCH (09:39)
[2018-07-11] MEDS: POTASSIUM CHLORIDE 20MEQ/PACKET PO SCH (09:39)
[2018-07-11] MEDS: THIAMINE HCL 100MG TABLET PO SCH (09:39)
[2018-07-11] MEDS: PANTOPRAZOLE SODIUM 40 MG/VIAL IV SCH (09:39)
[2018-07-11] MEDS: NYSTATIN POWDER 15GM TOP SCH ×3 (09:40→17:26)
[2018-07-11] MEDS: CEFEPIME 1,000 MG in DEXTROSE 5% WATER 50 ML IV SCH ×2 (11:32→23:44)
[2018-07-11] MEDS ORDERED: PHENYTOIN SODIUM 600 MG in SODIUM CHLORIDE 0.9% 100 ML IV NR (14:30)
[2018-07-11] MEDS: PHENYTOIN SODIUM EXTENDED 100MG CAPSULE PO SCH (22:04)
[2018-07-11] MEDS: FAMOTIDINE 20MG/2ML VIAL IV SCH (22:10)
[2018-07-12] VITALS (46 sets, daily range): BP systolic 86–157; BP diastolic 40–87
[2018-07-12] MEDS: BLOOD SUGAR DIAGNOSTIC STRIP TEST SCH ×4 (00:57→16:53)
[2018-07-12] MEDS: PROPOFOL 10MG/ML 100ML 100 ML IV PRN ×6 (00:58→21:20)
[2018-07-12] MEDS: ACETYLCYSTEINE 100MG/ML 10% VIAL 4ML INH SCH ×3 (01:46→15:53)
[2018-07-12] MEDS: IPRATROPIUM/ALBUTEROL 0.5-3(2.5)MG/3ML NEB HHN SCH ×4 (01:46→20:38)
[2018-07-12 05:41] LABS: CHLORIDE 108 mEq/L (98-107)
[2018-07-12 05:47] LABS: BASOPHILS % 0.9 % (0.0-2.0); EOSINOPHILS % 3.5 % (0.0-5.0); HEMATOCRIT. 31.6 % (42.0-52.0); HEMOGLOBIN. 10.5 g/dL (14.0-18.0); LYMPHOCYTES % 17.5 % (20.0-50.0); MEAN CORPUSCULAR HEMOGLOBIN 28.6 pg (28.0-32.0); MEAN CORPUSCULAR VOLUME 86.3 fL (80.0-94.0); MEAN PLATELET VOLUME 8.1 fl (7.4-10.4); MONOCYTES % 11.4 % (2.0-8.0); NEUTROPHILS % 66.7 % (40.0-76.0); PLATELET 325 x1000/uL (130-400); RED BLOOD CELL COUNT 3.67 mill/uL (4.7-6.1); RED CELL DISTRIBUTION WIDTH 15.1 % (11.6-14.6)
[2018-07-12 05:51] LABS: PHOSPHORUS 2.5 mg/dL (2.5-4.9)
[2018-07-12] MEDS: VANCOMYCIN HCL 1000 MG/20 ML ORAL PO SCH ×3 (05:53→17:00)
[2018-07-12] MEDS: METRONIDAZOLE 500MG TABLET GT SCH ×3 (05:53→21:47)
[2018-07-12] MEDS: INSULIN LISPRO 100 UNITS/ML SUBCUT SCH ×4 (06:00→16:54)
[2018-07-12 07:51] LABS: BG BASE EXCESS 6.7 mmol/L (-2.0-2.0); BG CARBOXYHEMOGLOBIN 0.8 % (0.5-1.5); BG DEOXYHEMOGLOBIN 7.1 % (0.0-5.0); BG FRACTION INSPIRED OXYGEN 40; BG HCO3 ACT 31.2 mmol/L (22.0-26.0); BG METHEMOGLOBIN 0.3 % (0.0-1.5); BG OXYGEN SATURATION 92.8 % (92.0-98.5); BG OXYHEMOGLOBIN 91.8 % (94.0-97.0); BG PCO2 44.2 mmHg (35.0-45.0); BG PH 7.467 (7.350-7.450); BG PO2 62.3 mmHg (75.0-100.0); BG SAMPLE SITE RIGHT RADIAL; BG TIDAL VOLUME(mL) 500 mL; BG TOTAL HEMOGLOBIN 11.8 g/dL (12.0-18.0); BG VENT MODE VENT - A/C; BG VENT RATE 16 set
[2018-07-12] MEDS: POTASSIUM CHLORIDE 20MEQ/PACKET PO SCH (08:02)
[2018-07-12] MEDS: NYSTATIN POWDER 15GM TOP SCH ×3 (08:02→16:59)
[2018-07-12] MEDS: MULTIVITAMINS,THER W-MINERALS TABLET PO SCH (08:02)
[2018-07-12] MEDS: LEVETIRACETAM 1,000 MG in SODIUM CHLORIDE 0.9% 100 ML IV SCH ×2 (08:02→21:43)
[2018-07-12] MEDS: THIAMINE HCL 100MG TABLET PO SCH (08:03)
[2018-07-12] MEDS: FAMOTIDINE 20MG/2ML VIAL IV SCH ×2 (08:03→21:44)
[2018-07-12] MEDS: ENOXAPARIN 40MG/0.4ML SYR SUBCUT SCH ×2 (08:03→21:45)
[2018-07-12] MEDS: FOLIC ACID 1MG TABLET PO SCH (08:03)
[2018-07-12] MEDS ORDERED: POTASSIUM CHLORIDE 20MEQ/PACKET PO NR (09:00)
[2018-07-12] MEDS ORDERED: FUROSEMIDE 40MG/4ML VIAL IVP NR (09:00)
[2018-07-12] MEDS: CEFEPIME 1,000 MG in DEXTROSE 5% WATER 50 ML IV SCH ×2 (10:33→23:25)
[2018-07-12] MEDS: ACETAMINOPHEN 325MG TABLET PO PRN (12:25)
[2018-07-12] MEDS: PHENYTOIN SODIUM EXTENDED 100MG CAPSULE PO SCH (21:46)
[2018-07-13] VITALS (35 sets, daily range): BP systolic 112–160; BP diastolic 57–106
[2018-07-13] MEDS: IPRATROPIUM/ALBUTEROL 0.5-3(2.5)MG/3ML NEB HHN SCH ×4 (00:21→20:08)
[2018-07-13] MEDS: ACETYLCYSTEINE 100MG/ML 10% VIAL 4ML INH SCH ×2 (00:22→09:20)
[2018-07-13] MEDS: PROPOFOL 10MG/ML 100ML 100 ML IV PRN ×3 (01:49→08:34)
[2018-07-13] MEDS: VANCOMYCIN HCL 1000 MG/20 ML ORAL PO SCH ×5 (05:22→23:47)
[2018-07-13] MEDS: METRONIDAZOLE 500MG TABLET GT SCH ×3 (05:22→21:55)
[2018-07-13] MEDS: INSULIN LISPRO 100 UNITS/ML SUBCUT SCH ×5 (06:00→23:49)
[2018-07-13 06:14] LABS: CHLORIDE 109 mEq/L (98-107)
[2018-07-13] MEDS: BLOOD SUGAR DIAGNOSTIC STRIP TEST SCH ×5 (06:36→23:47)
[2018-07-13 08:23] LABS: BG BASE EXCESS 7.2 mmol/L (-2.0-2.0); BG CARBOXYHEMOGLOBIN 0.3 % (0.5-1.5); BG DEOXYHEMOGLOBIN 2.2 % (0.0-5.0); BG FRACTION INSPIRED OXYGEN 50; BG HCO3 ACT 32.1 mmol/L (22.0-26.0); BG METHEMOGLOBIN 0.4 % (0.0-1.5); BG OXYGEN SATURATION 97.8 % (92.0-98.5); BG OXYHEMOGLOBIN 97.1 % (94.0-97.0); BG PCO2 46.9 mmHg (35.0-45.0); BG PH 7.453 (7.350-7.450); BG PO2 105.6 mmHg (75.0-100.0); BG SAMPLE SITE RIGHT RADIAL; BG TIDAL VOLUME(mL) 500 mL; BG VENT MODE VENT - A/C; BG VENT RATE 16 set
[2018-07-13] MEDS: THIAMINE HCL 100MG TABLET PO SCH (08:31)
[2018-07-13] MEDS: POTASSIUM CHLORIDE 20MEQ/PACKET PO SCH (08:31)
[2018-07-13] MEDS: FOLIC ACID 1MG TABLET PO SCH (08:31)
[2018-07-13] MEDS: FUROSEMIDE 40MG/4ML VIAL IVP SCH (08:31)
[2018-07-13] MEDS: MULTIVITAMINS,THER W-MINERALS TABLET PO SCH (08:31)
[2018-07-13] MEDS: FAMOTIDINE 20MG/2ML VIAL IV SCH ×2 (08:31→21:47)
[2018-07-13] MEDS: ENOXAPARIN 40MG/0.4ML SYR SUBCUT SCH ×2 (08:32→21:46)
[2018-07-13] MEDS: NYSTATIN POWDER 15GM TOP SCH ×3 (08:32→17:00)
[2018-07-13] MEDS: LEVETIRACETAM 1,000 MG in SODIUM CHLORIDE 0.9% 100 ML IV SCH ×2 (08:35→21:47)
[2018-07-13 08:40] LABS: BASOPHILS % 1.2 % (0.0-2.0); EOSINOPHILS % 5.2 % (0.0-5.0); HEMATOCRIT. 33.6 % (42.0-52.0); LYMPHOCYTES % 20.8 % (20.0-50.0); MEAN CORPUSCULAR HEMOGLOBIN 28.2 pg (28.0-32.0); MEAN CORPUSCULAR VOLUME 85.9 fL (80.0-94.0); MONOCYTES % 10.4 % (2.0-8.0); NEUTROPHILS % 62.4 % (40.0-76.0); RED BLOOD CELL COUNT 3.91 mill/uL (4.7-6.1); RED CELL DISTRIBUTION WIDTH 14.8 % (11.6-14.6)
[2018-07-13] MEDS: CEFEPIME 1,000 MG in DEXTROSE 5% WATER 50 ML IV SCH ×2 (11:02→23:46)
[2018-07-13 11:42] LABS: BG BASE EXCESS 10.2 mmol/L (-2.0-2.0); BG CARBOXYHEMOGLOBIN 0.5 % (0.5-1.5); BG DEOXYHEMOGLOBIN 7.5 % (0.0-5.0); BG FRACTION INSPIRED OXYGEN 40; BG HCO3 ACT 35.2 mmol/L (22.0-26.0); BG METHEMOGLOBIN 0.2 % (0.0-1.5); BG OXYGEN SATURATION 92.4 % (92.0-98.5); BG OXYHEMOGLOBIN 91.8 % (94.0-97.0); BG PCO2 48.6 mmHg (35.0-45.0); BG PH 7.478 (7.350-7.450); BG PO2 61.6 mmHg (75.0-100.0); BG PRESSURE SUPPORT 8; BG SAMPLE SITE RIGHT RADIAL; BG TOTAL HEMOGLOBIN 12.8 g/dL (12.0-18.0); BG VENT MODE VENT - CPAP
[2018-07-13] MEDS: PHENYTOIN SODIUM EXTENDED 100MG CAPSULE PO SCH (21:54)
[2018-07-14] VITALS (45 sets, daily range): BP systolic 121–154; BP diastolic 41–95
[2018-07-14] MEDS: ACETYLCYSTEINE 100MG/ML 10% VIAL 4ML INH SCH ×2 (01:57→08:52)
[2018-07-14] MEDS: IPRATROPIUM/ALBUTEROL 0.5-3(2.5)MG/3ML NEB HHN SCH ×4 (01:57→21:22)
[2018-07-14] MEDS: INSULIN LISPRO 100 UNITS/ML SUBCUT SCH ×4 (06:00→23:32)
[2018-07-14] MEDS: METRONIDAZOLE 500MG TABLET GT SCH ×3 (06:14→21:22)
[2018-07-14] MEDS: VANCOMYCIN HCL 1000 MG/20 ML ORAL PO SCH ×6 (06:15→23:32)
[2018-07-14] MEDS: BLOOD SUGAR DIAGNOSTIC STRIP TEST SCH ×4 (06:24→23:32)
[2018-07-14 06:44] LABS: BASOPHILS % 0.6 % (0.0-2.0); EOSINOPHILS % 3.1 % (0.0-5.0); HEMATOCRIT. 34.2 % (42.0-52.0); HEMOGLOBIN. 11.6 g/dL (14.0-18.0); LYMPHOCYTES % 18.2 % (20.0-50.0); MEAN CORPUSCULAR HEMOGLOBIN 28.9 pg (28.0-32.0); MEAN PLATELET VOLUME 6.9 fl (7.4-10.4); MONOCYTES % 13.6 % (2.0-8.0); NEUTROPHILS % 64.5 % (40.0-76.0); PLATELET 352 x1000/uL (130-400); RED BLOOD CELL COUNT 4.03 mill/uL (4.7-6.1); RED CELL DISTRIBUTION WIDTH 14.5 % (11.6-14.6)
[2018-07-14 06:51] LABS: CHLORIDE 106 mEq/L (98-107)
[2018-07-14] MEDS: LEVETIRACETAM 1,000 MG in SODIUM CHLORIDE 0.9% 100 ML IV SCH ×2 (09:00→21:21)
[2018-07-14] MEDS: NYSTATIN POWDER 15GM TOP SCH ×3 (09:00→17:00)
[2018-07-14] MEDS: FUROSEMIDE 40MG/4ML VIAL IVP SCH (10:50)
[2018-07-14] MEDS: FAMOTIDINE 20MG/2ML VIAL IV SCH ×2 (10:50→21:22)
[2018-07-14] MEDS: MULTIVITAMINS,THER W-MINERALS TABLET PO SCH (10:50)
[2018-07-14] MEDS: THIAMINE HCL 100MG TABLET PO SCH (10:50)
[2018-07-14] MEDS: POTASSIUM CHLORIDE 20MEQ/PACKET PO SCH (10:51)
[2018-07-14] MEDS: FOLIC ACID 1MG TABLET PO SCH (10:51)
[2018-07-14] MEDS: DOCUSATE SODIUM 100MG CAPSULE PO PRN (10:51)
[2018-07-14] MEDS: ENOXAPARIN 40MG/0.4ML SYR SUBCUT SCH ×2 (10:51→21:22)
[2018-07-14] MEDS: CEFEPIME 1,000 MG in DEXTROSE 5% WATER 50 ML IV SCH (11:09)
[2018-07-14] MEDS: PHENYTOIN SODIUM EXTENDED 100MG CAPSULE PO SCH (21:22)
[2018-07-15] VITALS (12 sets, daily range): BP systolic 3–150; BP diastolic 48–77
[2018-07-15] MEDS: IPRATROPIUM/ALBUTEROL 0.5-3(2.5)MG/3ML NEB HHN SCH (02:23)
[2018-07-15] MEDS: INSULIN LISPRO 100 UNITS/ML SUBCUT SCH ×3 (06:00→18:00)
[2018-07-15] MEDS: VANCOMYCIN HCL 1000 MG/20 ML ORAL PO SCH ×3 (06:20→18:02)
[2018-07-15] MEDS: BLOOD SUGAR DIAGNOSTIC STRIP TEST SCH ×3 (06:37→18:02)
[2018-07-15 07:11] LABS: EOSINOPHILS % 3.5 % (0.0-5.0); HEMATOCRIT. 35.6 % (42.0-52.0); HEMOGLOBIN. 11.7 g/dL (14.0-18.0); LYMPHOCYTES % 20.1 % (20.0-50.0); MEAN CORPUSCULAR HEMOGLOBIN 28.2 pg (28.0-32.0); MEAN CORPUSCULAR VOLUME 85.9 fL (80.0-94.0); MEAN PLATELET VOLUME 7.5 fl (7.4-10.4); NEUTROPHILS % 64.4 % (40.0-76.0); PLATELET 400 x1000/uL (130-400); RED BLOOD CELL COUNT 4.14 mill/uL (4.7-6.1); RED CELL DISTRIBUTION WIDTH 14.4 % (11.6-14.6)
[2018-07-15 07:27] LABS: CHLORIDE 107 mEq/L (98-107)
[2018-07-15] MEDS: DOCUSATE SODIUM 100MG CAPSULE PO PRN (10:14)
[2018-07-15] MEDS: POTASSIUM CHLORIDE 20MEQ/PACKET PO SCH (10:14)
[2018-07-15] MEDS: ENOXAPARIN 40MG/0.4ML SYR SUBCUT SCH ×2 (10:15→22:21)
[2018-07-15] MEDS: FOLIC ACID 1MG TABLET PO SCH (10:15)
[2018-07-15] MEDS: THIAMINE HCL 100MG TABLET PO SCH (10:15)
[2018-07-15] MEDS: MULTIVITAMINS,THER W-MINERALS TABLET PO SCH (10:15)
[2018-07-15] MEDS: FUROSEMIDE 40MG/4ML VIAL IVP SCH (10:16)
[2018-07-15] MEDS: NYSTATIN POWDER 15GM TOP SCH ×3 (10:16→18:02)
[2018-07-15] MEDS: FAMOTIDINE 20MG/2ML VIAL IV SCH ×2 (10:16→22:20)
[2018-07-15] MEDS: ACETAMINOPHEN 325MG TABLET PO PRN (11:41)
[2018-07-15] MEDS: LEVETIRACETAM 1,000 MG in SODIUM CHLORIDE 0.9% 100 ML IV SCH ×2 (11:41→22:20)
[2018-07-15] MEDS ORDERED: LACTULOSE 20G/30ML UDC PO PRN (16:45)
[2018-07-15] MEDS: PHENYTOIN SODIUM EXTENDED 100MG CAPSULE PO SCH (22:21)
[2018-07-16] VITALS (12 sets, daily range): BP systolic 114–142; BP diastolic 58–77
[2018-07-16] MEDS: BLOOD SUGAR DIAGNOSTIC STRIP TEST SCH ×4 (05:52→17:52)
[2018-07-16] MEDS: VANCOMYCIN HCL 1000 MG/20 ML ORAL PO SCH ×4 (05:52→17:54)
[2018-07-16] MEDS: INSULIN LISPRO 100 UNITS/ML SUBCUT SCH ×4 (05:52→17:52)
[2018-07-16 07:57] LABS: BASOPHILS % 0.6 % (0.0-2.0); EOSINOPHILS % 2.9 % (0.0-5.0); HEMATOCRIT. 34.2 % (42.0-52.0); HEMOGLOBIN. 11.3 g/dL (14.0-18.0); LYMPHOCYTES % 24.4 % (20.0-50.0); MEAN CORPUSCULAR HEMOGLOBIN 28.3 pg (28.0-32.0); MEAN CORPUSCULAR VOLUME 85.3 fL (80.0-94.0); MONOCYTES % 10.6 % (2.0-8.0); NEUTROPHILS % 61.5 % (40.0-76.0); PLATELET 372 x1000/uL (130-400); RED BLOOD CELL COUNT 4.02 mill/uL (4.7-6.1); RED CELL DISTRIBUTION WIDTH 14.3 % (11.6-14.6)
[2018-07-16 07:58] LABS: CHLORIDE 105 mEq/L (98-107)
[2018-07-16] MEDS ORDERED: POTASSIUM CHLORIDE 20MEQ TABLET SR PO ONE (10:00)
[2018-07-16] MEDS: POTASSIUM CHLORIDE 20MEQ/PACKET PO SCH (10:11)
[2018-07-16] MEDS: FOLIC ACID 1MG TABLET PO SCH (10:11)
[2018-07-16] MEDS: FUROSEMIDE 40MG/4ML VIAL IVP SCH (10:11)
[2018-07-16] MEDS: THIAMINE HCL 100MG TABLET PO SCH (10:11)
[2018-07-16] MEDS: MULTIVITAMINS,THER W-MINERALS TABLET PO SCH (10:11)
[2018-07-16] MEDS: ENOXAPARIN 40MG/0.4ML SYR SUBCUT SCH ×2 (10:11→21:06)
[2018-07-16] MEDS: FAMOTIDINE 20MG/2ML VIAL IV SCH ×2 (10:11→21:05)
[2018-07-16] MEDS: LEVETIRACETAM 1,000 MG in SODIUM CHLORIDE 0.9% 100 ML IV SCH ×2 (10:22→21:05)
[2018-07-16] MEDS: NYSTATIN POWDER 15GM TOP SCH ×3 (10:33→17:54)
[2018-07-16] MEDS ORDERED: KCL 20MEQ/100ML PREMIX 100 ML IV NR ×2 (11:00→21:00)
[2018-07-16] MEDS: PHENYTOIN SODIUM EXTENDED 100MG CAPSULE PO SCH (21:05)
[2018-07-17] VITALS (12 sets, daily range): BP systolic 107–147; BP diastolic 48–74
[2018-07-17] MEDS: BLOOD SUGAR DIAGNOSTIC STRIP TEST SCH ×4 (00:38→17:39)
[2018-07-17] MEDS: INSULIN LISPRO 100 UNITS/ML SUBCUT SCH ×4 (06:00→17:39)
[2018-07-17 08:04] LABS: EOSINOPHILS % 4.8 % (0.0-5.0); HEMATOCRIT. 35.2 % (42.0-52.0); HEMOGLOBIN. 11.8 g/dL (14.0-18.0); LYMPHOCYTES % 22.6 % (20.0-50.0); MEAN CORPUSCULAR HEMOGLOBIN 28.3 pg (28.0-32.0); MEAN CORPUSCULAR VOLUME 84.9 fL (80.0-94.0); MEAN PLATELET VOLUME 7.1 fl (7.4-10.4); MONOCYTES % 11.6 % (2.0-8.0); PLATELET 369 x1000/uL (130-400); RED BLOOD CELL COUNT 4.15 mill/uL (4.7-6.1); RED CELL DISTRIBUTION WIDTH 14.5 % (11.6-14.6)
[2018-07-17 08:25] LABS: CHLORIDE 104 mEq/L (98-107)
[2018-07-17] MEDS: ENOXAPARIN 40MG/0.4ML SYR SUBCUT SCH ×2 (09:15→20:09)
[2018-07-17] MEDS: LEVETIRACETAM 1,000 MG in SODIUM CHLORIDE 0.9% 100 ML IV SCH (09:15)
[2018-07-17] MEDS: FAMOTIDINE 20MG/2ML VIAL IV SCH ×2 (09:16→20:09)
[2018-07-17] MEDS: NYSTATIN POWDER 15GM TOP SCH ×3 (09:16→16:47)
[2018-07-17] MEDS: MULTIVITAMINS,THER W-MINERALS TABLET PO SCH (09:16)
[2018-07-17] MEDS: FUROSEMIDE 40MG/4ML VIAL IVP SCH (09:16)
[2018-07-17] MEDS: THIAMINE HCL 100MG TABLET PO SCH (09:16)
[2018-07-17] MEDS: FOLIC ACID 1MG TABLET PO SCH (09:16)
[2018-07-17] MEDS: POTASSIUM CHLORIDE 20MEQ/PACKET PO SCH (09:16)
[2018-07-17] MEDS ORDERED: KCL 20MEQ/100ML PREMIX 100 ML IV NR ×2 (12:00→21:00)
[2018-07-17] MEDS ORDERED: POTASSIUM CHLORIDE 20MEQ/PACKET PO SCH (13:00)
[2018-07-17] MEDS ORDERED: POTASSIUM CHLORIDE INJ 40 MEQ in DEXT 5% WATER 250 ML IV NR (14:30)
[2018-07-17] MEDS: LEVETIRACETAM 500MG TABLET PO SCH (20:10)
[2018-07-17] MEDS: PHENYTOIN SODIUM EXTENDED 100MG CAPSULE PO SCH (20:10)
[2018-07-18] VITALS (12 sets, daily range): BP systolic 113–137; BP diastolic 57–94
[2018-07-18] MEDS: IPRATROPIUM/ALBUTEROL 0.5-3(2.5)MG/3ML NEB HHN SCH ×4 (02:01→21:01)
[2018-07-18] MEDS: BLOOD SUGAR DIAGNOSTIC STRIP TEST SCH ×5 (06:00→23:32)
[2018-07-18 07:15] LABS: BASOPHILS % 0.9 % (0.0-2.0); EOSINOPHILS % 3.5 % (0.0-5.0); HEMATOCRIT. 37.1 % (42.0-52.0); HEMOGLOBIN. 12.3 g/dL (14.0-18.0); LYMPHOCYTES % 21.2 % (20.0-50.0); MEAN CORPUSCULAR HEMOGLOBIN 28.3 pg (28.0-32.0); MEAN CORPUSCULAR VOLUME 85.2 fL (80.0-94.0); MEAN PLATELET VOLUME 7.4 fl (7.4-10.4); MONOCYTES % 11.1 % (2.0-8.0); NEUTROPHILS % 63.3 % (40.0-76.0); PLATELET 330 x1000/uL (130-400); RED BLOOD CELL COUNT 4.36 mill/uL (4.7-6.1); RED CELL DISTRIBUTION WIDTH 14.8 % (11.6-14.6)
[2018-07-18 07:47] LABS: CHLORIDE 104 mEq/L (98-107)
[2018-07-18 07:54] LABS: PHOSPHORUS 3.3 mg/dL (2.5-4.9)
[2018-07-18] MEDS: ENOXAPARIN 40MG/0.4ML SYR SUBCUT SCH ×2 (08:55→22:13)
[2018-07-18] MEDS: POTASSIUM CHLORIDE 20MEQ/PACKET PO SCH (08:57)
[2018-07-18] MEDS: FAMOTIDINE 20MG/2ML VIAL IV SCH ×2 (08:57→22:13)
[2018-07-18] MEDS: FOLIC ACID 1MG TABLET PO SCH (08:57)
[2018-07-18] MEDS: FUROSEMIDE 40MG/4ML VIAL IVP SCH (08:57)
[2018-07-18] MEDS: LEVETIRACETAM 500MG TABLET PO SCH ×2 (08:57→22:13)
[2018-07-18] MEDS: THIAMINE HCL 100MG TABLET PO SCH (08:59)
[2018-07-18] MEDS: NYSTATIN POWDER 15GM TOP SCH ×3 (09:16→18:00)
[2018-07-18] MEDS: MULTIVITAMINS,THER W-MINERALS TABLET PO SCH (09:16)
[2018-07-18] MEDS: INSULIN LISPRO 100 UNITS/ML SUBCUT SCH ×3 (12:51→23:32)
[2018-07-18] MEDS: PHENYTOIN SODIUM EXTENDED 100MG CAPSULE PO SCH (22:13)
[2018-07-19] VITALS (12 sets, daily range): BP systolic 117–150; BP diastolic 55–91
[2018-07-19] MEDS: IPRATROPIUM/ALBUTEROL 0.5-3(2.5)MG/3ML NEB HHN SCH ×4 (00:21→21:07)
[2018-07-19] MEDS: INSULIN LISPRO 100 UNITS/ML SUBCUT SCH ×4 (06:00→23:00)
[2018-07-19] MEDS: BLOOD SUGAR DIAGNOSTIC STRIP TEST SCH ×3 (06:00→17:42)
[2018-07-19 08:24] LABS: BASOPHILS % 0.9 % (0.0-2.0); EOSINOPHILS % 4.1 % (0.0-5.0); HEMATOCRIT. 38.8 % (42.0-52.0); HEMOGLOBIN. 12.9 g/dL (14.0-18.0); LYMPHOCYTES % 19.7 % (20.0-50.0); MEAN CORPUSCULAR HEMOGLOBIN 28.5 pg (28.0-32.0); MEAN CORPUSCULAR VOLUME 85.8 fL (80.0-94.0); MEAN PLATELET VOLUME 7.3 fl (7.4-10.4); MONOCYTES % 9.1 % (2.0-8.0); NEUTROPHILS % 66.2 % (40.0-76.0); PLATELET 322 x1000/uL (130-400); RED BLOOD CELL COUNT 4.52 mill/uL (4.7-6.1); RED CELL DISTRIBUTION WIDTH 14.7 % (11.6-14.6)
[2018-07-19 08:59] LABS: CHLORIDE 105 mEq/L (98-107)
[2018-07-19] MEDS: FAMOTIDINE 20MG/2ML VIAL IV SCH ×2 (09:49→20:20)
[2018-07-19] MEDS: FUROSEMIDE 40MG/4ML VIAL IVP SCH (09:49)
[2018-07-19] MEDS: MULTIVITAMINS,THER W-MINERALS TABLET PO SCH (09:50)
[2018-07-19] MEDS: THIAMINE HCL 100MG TABLET PO SCH (09:50)
[2018-07-19] MEDS: POTASSIUM CHLORIDE 20MEQ/PACKET PO SCH ×2 (09:51→16:09)
[2018-07-19] MEDS: LEVETIRACETAM 500MG TABLET PO SCH ×2 (09:51→21:00)
[2018-07-19] MEDS: FOLIC ACID 1MG TABLET PO SCH (09:51)
[2018-07-19] MEDS: ENOXAPARIN 40MG/0.4ML SYR SUBCUT SCH ×2 (09:55→20:20)
[2018-07-19] MEDS: PHENYTOIN SODIUM EXTENDED 100MG CAPSULE PO SCH (20:20)
[2018-07-20] VITALS (12 sets, daily range): BP systolic 115–182; BP diastolic 57–97
[2018-07-20] MEDS: IPRATROPIUM/ALBUTEROL 0.5-3(2.5)MG/3ML NEB HHN SCH ×5 (02:10→21:29)
[2018-07-20] MEDS: INSULIN LISPRO 100 UNITS/ML SUBCUT SCH ×3 (05:49→17:22)
[2018-07-20] MEDS: BLOOD SUGAR DIAGNOSTIC STRIP TEST SCH ×4 (06:00→17:22)
[2018-07-20 06:36] LABS: BASOPHILS % 0.8 % (0.0-2.0); EOSINOPHILS % 5.2 % (0.0-5.0); HEMATOCRIT. 36.6 % (42.0-52.0); HEMOGLOBIN. 12.1 g/dL (14.0-18.0); LYMPHOCYTES % 22.7 % (20.0-50.0); MEAN CORPUSCULAR HEMOGLOBIN 28.4 pg (28.0-32.0); MEAN CORPUSCULAR VOLUME 85.8 fL (80.0-94.0); MEAN PLATELET VOLUME 7.2 fl (7.4-10.4); MONOCYTES % 10.1 % (2.0-8.0); NEUTROPHILS % 61.2 % (40.0-76.0); PLATELET 326 x1000/uL (130-400); RED BLOOD CELL COUNT 4.27 mill/uL (4.7-6.1); RED CELL DISTRIBUTION WIDTH 15.2 % (11.6-14.6)
[2018-07-20 07:07] LABS: CHLORIDE 104 mEq/L (98-107)
[2018-07-20 07:19] LABS: PHOSPHORUS 3.2 mg/dL (2.5-4.9)
[2018-07-20] MEDS: FAMOTIDINE 20MG/2ML VIAL IV SCH ×2 (08:27→21:44)
[2018-07-20] MEDS: LEVETIRACETAM 500MG TABLET PO SCH ×2 (08:28→21:44)
[2018-07-20] MEDS: POTASSIUM CHLORIDE 20MEQ/PACKET PO SCH ×2 (08:28→16:57)
[2018-07-20] MEDS: FUROSEMIDE 40MG/4ML VIAL IVP SCH (08:28)
[2018-07-20] MEDS: MULTIVITAMINS,THER W-MINERALS TABLET PO SCH (08:44)
[2018-07-20] MEDS: ENOXAPARIN 40MG/0.4ML SYR SUBCUT SCH ×2 (08:44→21:44)
[2018-07-20] MEDS: THIAMINE HCL 100MG TABLET PO SCH (08:45)
[2018-07-20] MEDS: FOLIC ACID 1MG TABLET PO SCH (08:45)
[2018-07-20] MEDS: PHENYTOIN SODIUM EXTENDED 100MG CAPSULE PO SCH (21:44)
[2018-07-21] VITALS (13 sets, daily range): BP systolic 118–160; BP diastolic 65–94
[2018-07-21] MEDS: IPRATROPIUM/ALBUTEROL 0.5-3(2.5)MG/3ML NEB HHN SCH ×4 (02:28→20:10)
[2018-07-21] MEDS: BLOOD SUGAR DIAGNOSTIC STRIP TEST SCH ×4 (06:00→17:14)
[2018-07-21] MEDS: INSULIN LISPRO 100 UNITS/ML SUBCUT SCH ×5 (06:00→23:12)
[2018-07-21 07:08] LABS: CHLORIDE 105 mEq/L (98-107)
[2018-07-21 07:09] LABS: BASOPHILS % 0.8 % (0.0-2.0); HEMATOCRIT. 37.4 % (42.0-52.0); HEMOGLOBIN. 12.3 g/dL (14.0-18.0); LYMPHOCYTES % 22.2 % (20.0-50.0); MEAN CORPUSCULAR HEMOGLOBIN 28.5 pg (28.0-32.0); MEAN CORPUSCULAR VOLUME 86.3 fL (80.0-94.0); MEAN PLATELET VOLUME 8.2 fl (7.4-10.4); MONOCYTES % 9.6 % (2.0-8.0); NEUTROPHILS % 63.4 % (40.0-76.0); PLATELET 288 x1000/uL (130-400); RED BLOOD CELL COUNT 4.34 mill/uL (4.7-6.1); RED CELL DISTRIBUTION WIDTH 15.4 % (11.6-14.6)
[2018-07-21] MEDS: FAMOTIDINE 20MG/2ML VIAL IV SCH ×2 (08:26→21:16)
[2018-07-21] MEDS: MULTIVITAMINS,THER W-MINERALS TABLET PO SCH (08:26)
[2018-07-21] MEDS: LEVETIRACETAM 500MG TABLET PO SCH ×2 (08:26→21:16)
[2018-07-21] MEDS: THIAMINE HCL 100MG TABLET PO SCH (08:26)
[2018-07-21] MEDS: FUROSEMIDE 40MG/4ML VIAL IVP SCH (08:26)
[2018-07-21] MEDS: ENOXAPARIN 40MG/0.4ML SYR SUBCUT SCH ×2 (08:26→21:16)
[2018-07-21] MEDS: FOLIC ACID 1MG TABLET PO SCH (08:27)
[2018-07-21] MEDS: POTASSIUM CHLORIDE 20MEQ/PACKET PO SCH ×2 (08:28→17:14)
[2018-07-21] MEDS: PHENYTOIN SODIUM EXTENDED 100MG CAPSULE PO SCH (21:16)
[2018-07-22] VITALS (8 sets, daily range): BP systolic 118–150; BP diastolic 71–89
[2018-07-22] MEDS: INSULIN LISPRO 100 UNITS/ML SUBCUT SCH ×3 (06:00→18:00)
[2018-07-22] MEDS: BLOOD SUGAR DIAGNOSTIC STRIP TEST SCH ×4 (06:00→18:34)
[2018-07-22] MEDS: MULTIVITAMINS,THER W-MINERALS TABLET PO SCH (09:26)
[2018-07-22] MEDS: FAMOTIDINE 20MG/2ML VIAL IV SCH (09:26)
[2018-07-22] MEDS: FOLIC ACID 1MG TABLET PO SCH (09:26)
[2018-07-22] MEDS: LEVETIRACETAM 500MG TABLET PO SCH (09:26)
[2018-07-22] MEDS: POTASSIUM CHLORIDE 20MEQ/PACKET PO SCH ×2 (09:26→17:35)
[2018-07-22] MEDS: THIAMINE HCL 100MG TABLET PO SCH (09:26)
[2018-07-22] MEDS: FUROSEMIDE 40MG/4ML VIAL IVP SCH (09:26)
[2018-07-22] MEDS: ENOXAPARIN 40MG/0.4ML SYR SUBCUT SCH (09:27)
[2018-07-22 09:31] LABS: BASOPHILS % 0.8 % (0.0-2.0); EOSINOPHILS % 3.1 % (0.0-5.0); HEMATOCRIT. 39.6 % (42.0-52.0); HEMOGLOBIN. 13.1 g/dL (14.0-18.0); LYMPHOCYTES % 21.7 % (20.0-50.0); MEAN CORPUSCULAR HEMOGLOBIN 28.7 pg (28.0-32.0); MEAN CORPUSCULAR VOLUME 87.1 fL (80.0-94.0); MEAN PLATELET VOLUME 8.4 fl (7.4-10.4); MONOCYTES % 10.2 % (2.0-8.0); NEUTROPHILS % 64.2 % (40.0-76.0); PLATELET 274 x1000/uL (130-400); RED BLOOD CELL COUNT 4.55 mill/uL (4.7-6.1); RED CELL DISTRIBUTION WIDTH 15.6 % (11.6-14.6)
[2018-07-22 10:47] LABS: CHLORIDE 105 mEq/L (98-107)
[2018-07-22] MEDS: IPRATROPIUM/ALBUTEROL 0.5-3(2.5)MG/3ML NEB HHN SCH (12:31)
== END 2018-07-22 19:05 | disposition home health service (06) | DRG 720 ==
LOC: ER 20:02 → 7WST 22:38 → EDBEDREQTM 22:41 → EDBEDREQ 22:41 → ENRESERV 07-07 02:46 → CVICU 07-07 06:10 → 5EST 07-14 22:40
PROVIDERS: ADMIT Internal Medicine; ATTEND Internal Medicine
PROC: 5A1955Z Respiratory Ventilation, Greater than 96 Consecutive Hours (ICD-10-PCS; principal; 2018-07-07)
PROC: 5A12012 Performance of Cardiac Output, Single, Manual (ICD-10-PCS; 2018-07-07)
PROC: 0BH17EZ Insertion of Endotracheal Airway into Trachea, Via Natural or Artificial Opening (ICD-10-PCS; 2018-07-07)
PROC: 4A00X4Z Measurement of Central Nervous Electrical Activity, External Approach (ICD-10-PCS; 2018-07-08)
DX: A41.9 Sepsis, unspecified organism (principal); I46.2 Cardiac arrest due to underlying cardiac condition; J96.00 Acute respiratory failure, unspecified whether with hypoxia or hypercapnia; J69.0 Pneumonitis due to inhalation of food and vomit; G93.1 Anoxic brain damage, not elsewhere classified; E43 Unspecified severe protein-calorie malnutrition; I50.21 Acute systolic (congestive) heart failure; A04.72 Enterocolitis due to Clostridium difficile, not specified as recurrent; Z99.11 Dependence on respirator [ventilator] status; E78.00 Pure hypercholesterolemia, unspecified; E87.6 Hypokalemia; N39.0 Urinary tract infection, site not specified; M19.90 Unspecified osteoarthritis, unspecified site; E11.9 Type 2 diabetes mellitus without complications; L97.929 Non-pressure chronic ulcer of unspecified part of left lower leg with unspecified severity; E66.01 Morbid (severe) obesity due to excess calories; E78.5 Hyperlipidemia, unspecified; R74.0 Nonspecific elevation of levels of transaminase and lactic acid dehydrogenase [LDH]; D18.03 Hemangioma of intra-abdominal structures; G90.8 Other disorders of autonomic nervous system; F19.10 Other psychoactive substance abuse, uncomplicated; E83.39 Other disorders of phosphorus metabolism; E87.0 Hyperosmolality and hypernatremia; E87.5 Hyperkalemia; F16.90 Hallucinogen use, unspecified, uncomplicated; I11.0 Hypertensive heart disease with heart failure; I49.01 Ventricular fibrillation; I87.8 Other specified disorders of veins; Z68.42 Body mass index [BMI] 45.0-49.9, adult; Z78.1 Physical restraint status; Z79.82 Long term (current) use of aspirin
CPT/HCPCS: 36415; 36600; 71045; 80048; 80061; 80076; 80185; 80305; 82105; 82140; 82375; 82550; 82553; 82805; 82962; 83605; 83735; 83880; 83930; 83935; 84100; 84132; 84133; 84134; 84443; 84478; 84484; 85379; 86705; 86709; 86803; 87070; 87340; 87389; 87493; 87804; 92610; 92950; 93005; 93306; 93970; 94002; 94003; 94640; 96374; 97110; 97116; 97162; 97167; 97530; 97535; 99291; A6261; C9113; G0482; J0461; J0692; J1165; J1650; J1815; J1940; J1953; J2060; J2405; J2704; J3370; J3475; J3480; J3490; J7040; J7050; J7060; J7608; J7620; A4315

== ENCOUNTER 2018-12-30 23:37 | Inpatient (IN) | payer MEDICAID ==
[~2018-12-30] VITALS: Ht 188 cm; Wt 159.3 kg
[~2018-12-30 23:37] MED LIST changes: -BENZ1TAB7 PO; -OMEP20CA10 PO; +OMEP20CA5 PO; -THIO100T PO
[2018-12-31] MEDS ORDERED: FUROSEMIDE 20MG/2ML VIAL IVP ONE (06:30)
[2018-12-31 06:45] LABS: CLARITY URINE CLEAR (CLEAR); COLOR URINE YELLOW (YELLOW); KETONES URINE NEGATIVE (NEGATIVE); LEUKOCYTE ESTERASE URINE NEGATIVE (NEGATIVE); NITRITE URINE NEGATIVE (NEGATIVE); OCCULT BLOOD URINE NEGATIVE (NEGATIVE); PROTEIN URINE NEGATIVE (NEGATIVE); SPECIFIC GRAVITY URINE 1.006 (1.005-1.030); UROBILINOGEN URINE 0.2 E.U./dL (0.2-1.0)
[2018-12-31 06:46] LABS: BASOPHILS % 0.5 % (0.0-2.0); EOSINOPHILS % 0.3 % (0.0-5.0); HEMATOCRIT. 35.8 % (42.0-52.0); HEMOGLOBIN. 11.8 g/dL (14.0-18.0); LYMPHOCYTES % 7.5 % (20.0-50.0); MEAN CORPUSCULAR HEMOGLOBIN 27.9 pg (28.0-32.0); MEAN CORPUSCULAR VOLUME 84.4 fL (80.0-94.0); MEAN PLATELET VOLUME 7.2 fl (7.4-10.4); MONOCYTES % 9.1 % (2.0-8.0); NEUTROPHILS % 82.6 % (40.0-76.0); PLATELET 384 x1000/uL (130-400); RED BLOOD CELL COUNT 4.24 mill/uL (4.7-6.1); RED CELL DISTRIBUTION WIDTH 14.7 % (11.6-14.6)
[2018-12-31 06:51] LABS: CHLORIDE 104 mEq/L (98-107)
[2018-12-31 06:53] LABS: INR 1.1; PARTIAL THROMBOPLASTIN TIME 26.6 sec (23.4-31.0); PROTHROMBIN TIME 11.6 sec (9.6-11.0)
[2018-12-31 07:24] LABS: *AMPHETAMINES SCREEN URINE NEGATIVE (NEGATIVE); *BARBITURATES SCREEN URINE NEGATIVE (NEGATIVE); *BENZODIAZEPINES SCREEN URINE NEGATIVE (NEGATIVE); *COCAINE SCREEN URINE NEGATIVE (NEGATIVE)
[2018-12-31 07:25] LABS: CANNABINOID URINE SCREEN NEGATIVE (NEGATIVE); METHADONE URINE SCREEN NEGATIVE (NEGATIVE); OPIATES URINE SCREEN NEGATIVE (NEGATIVE); PHENCYCLIDINE URINE SCREEN NEGATIVE (NEGATIVE)
[2018-12-31 12:00] VITALS: BP 156/89
[2018-12-31] MEDS ORDERED: DOCUSATE SODIUM 100MG CAPSULE PO PRN (13:00)
[2018-12-31] MEDS ORDERED: CLONIDINE 0.1MG TABLET PO PRN (13:00)
[2018-12-31] MEDS ORDERED: LORAZEPAM 0.5MG TABLET PO PRN (13:00)
[2018-12-31] MEDS ORDERED: ONDANSETRON HCL 4MG/2ML INJ IV PRN (13:00)
[2018-12-31] MEDS ORDERED: ACETAMINOPHEN 325MG TABLET PO PRN (13:00)
[2018-12-31] MEDS ORDERED: HYDROCODONE/ACETAMINOPHEN 5/325MG TABLET PO PRN (13:00)
[2018-12-31] MEDS ORDERED: FUROSEMIDE 40MG/4ML VIAL IV SCH (13:00)
[2018-12-31] MEDS ORDERED: [UNRECOGNIZED DRUG - CODE] MT (13:08)
[2018-12-31] MEDS ORDERED: LISI-604 MT (13:08)
[2018-12-31] MEDS ORDERED: P50 MT (13:08)
[2018-12-31] MEDS ORDERED: TEMA15CA5 MT (13:08)
[2018-12-31] MEDS ORDERED: BENZ1TAB7 MT (13:08)
[2018-12-31] MEDS ORDERED: DEXTROSE 50% WATER 50ML SYRINGE IV PRN (13:45)
[2018-12-31] MEDS ORDERED: FLUP10TA2 MT (14:08)
[2018-12-31] MEDS: ENOXAPARIN 40MG/0.4ML SYR SUBCUT SCH ×2 (14:19→22:06)
[2018-12-31] MEDS: LISINOPRIL 20MG TABLET PO SCH (14:20)
[2018-12-31] MEDS: ASPIRIN 81MG TABLET PO SCH (14:20)
[2018-12-31] MEDS ORDERED: THIORIDAZINE HCL 25MG TABLET PO SCH ×2 (15:00)
[2018-12-31] MEDS ORDERED: FUROSEMIDE 100MG/10ML VIAL IVP NR (15:00)
[2018-12-31 16:00] VITALS: BP 146/83
[2018-12-31] MEDS: BLOOD SUGAR DIAGNOSTIC STRIP TEST SCH ×2 (17:07→21:36)
[2018-12-31] MEDS: POTASSIUM CHLORIDE 20MEQ TABLET SR PO SCH (17:08)
[2018-12-31] MEDS: INSULIN LISPRO 100 UNITS/ML SUBCUT SCH ×2 (17:09→21:00)
[2018-12-31 20:00] VITALS: BP 150/92
[2018-12-31] MEDS: FUROSEMIDE 100MG/10ML VIAL IVP SCH (21:00)
[2018-12-31] MEDS ORDERED: TEMAZEPAM 15MG CAPSULE PO PRN (21:00)
[2018-12-31] MEDS ORDERED: ZOLPIDEM TARTRATE 5MG TABLET PO PRN (21:00)
[2018-12-31] MEDS: ATORVASTATIN CALCIUM 20MG TABLET PO SCH (22:04)
[2018-12-31] MEDS: CARVEDILOL 6.25 MG TABLET PO SCH (22:05)
[2019-01-01] VITALS: BP 144/93
[2019-01-01 04:00] VITALS: BP 133/96
[2019-01-01] MEDS: BLOOD SUGAR DIAGNOSTIC STRIP TEST SCH ×4 (06:38→21:57)
[2019-01-01] MEDS: INSULIN LISPRO 100 UNITS/ML SUBCUT SCH ×4 (06:38→21:00)
[2019-01-01] MEDS: IPRATROPIUM/ALBUTEROL 0.5-3(2.5)MG/3ML NEB INH PRN ×3 (07:35→21:43)
[2019-01-01 07:51] LABS: BASOPHILS % 0.4 % (0.0-2.0); EOSINOPHILS % 0.8 % (0.0-5.0); HEMATOCRIT. 34.5 % (42.0-52.0); HEMOGLOBIN. 11.4 g/dL (14.0-18.0); LYMPHOCYTES % 13.3 % (20.0-50.0); MEAN CORPUSCULAR VOLUME 84.3 fL (80.0-94.0); MEAN PLATELET VOLUME 7.5 fl (7.4-10.4); MONOCYTES % 10.5 % (2.0-8.0); PLATELET 390 x1000/uL (130-400); RED BLOOD CELL COUNT 4.09 mill/uL (4.7-6.1); RED CELL DISTRIBUTION WIDTH 14.6 % (11.6-14.6)
[2019-01-01 08:00] VITALS: BP 119/82
[2019-01-01 08:13] LABS: CHLORIDE 104 mEq/L (98-107)
[2019-01-01 08:24] LABS: TOTAL IRON BINDING CAPACITY 316 ug/dL (250-450)
[2019-01-01] MEDS: ENOXAPARIN 40MG/0.4ML SYR SUBCUT SCH ×2 (09:34→21:57)
[2019-01-01] MEDS: OMEPRAZOLE 20MG CAPSULE EXTENDED RELEASE PO SCH (09:35)
[2019-01-01] MEDS: CARVEDILOL 6.25 MG TABLET PO SCH ×2 (09:35→21:56)
[2019-01-01] MEDS: FUROSEMIDE 100MG/10ML VIAL IVP SCH ×2 (09:36→17:34)
[2019-01-01] MEDS: POTASSIUM CHLORIDE 20MEQ TABLET SR PO SCH ×2 (09:36→17:33)
[2019-01-01] MEDS: BENZTROPINE MESYLATE 1MG TABLET PO SCH (09:36)
[2019-01-01] MEDS: LISINOPRIL 20MG TABLET PO SCH (09:36)
[2019-01-01] MEDS: ASPIRIN 81MG TABLET PO SCH (09:39)
[2019-01-01] MEDS ORDERED: NON FORMULARY PATIENT HOME MED XX SCH (11:15)
[2019-01-01 12:00] VITALS: BP 117/80
[2019-01-01] MEDS: FERROUS SULFATE 325MG TABLET PO SCH ×2 (12:16→17:33)
[2019-01-01 16:00] VITALS: BP 112/73
[2019-01-01] MEDS ORDERED: FLUPHENAZINE HCL 10 MG TABLET PO SCH (17:00)
[2019-01-01 20:00] VITALS: BP 129/80
[2019-01-01] MEDS: ATORVASTATIN CALCIUM 20MG TABLET PO SCH (21:56)
[2019-01-02] VITALS: BP 131/89
[2019-01-02 04:00] VITALS: BP 160/95
[2019-01-02] MEDS: OMEPRAZOLE 20MG CAPSULE EXTENDED RELEASE PO SCH (06:50)
[2019-01-02] MEDS: BLOOD SUGAR DIAGNOSTIC STRIP TEST SCH ×2 (06:51→12:05)
[2019-01-02] MEDS: INSULIN LISPRO 100 UNITS/ML SUBCUT SCH ×2 (07:12→12:15)
[2019-01-02 07:58] LABS: BASOPHILS % 0.6 % (0.0-2.0); EOSINOPHILS % 1.8 % (0.0-5.0); HEMATOCRIT. 38.3 % (42.0-52.0); HEMOGLOBIN. 12.5 g/dL (14.0-18.0); LYMPHOCYTES % 16.5 % (20.0-50.0); MEAN CORPUSCULAR HEMOGLOBIN 27.8 pg (28.0-32.0); MEAN CORPUSCULAR VOLUME 85.4 fL (80.0-94.0); MEAN PLATELET VOLUME 7.9 fl (7.4-10.4); MONOCYTES % 10.6 % (2.0-8.0); NEUTROPHILS % 70.5 % (40.0-76.0); PLATELET 411 x1000/uL (130-400); RED BLOOD CELL COUNT 4.48 mill/uL (4.7-6.1); RED CELL DISTRIBUTION WIDTH 14.5 % (11.6-14.6)
[2019-01-02 08:00] VITALS: BP 166/95
[2019-01-02] MEDS: FERROUS SULFATE 325MG TABLET PO SCH ×2 (08:28→12:36)
[2019-01-02] MEDS: FUROSEMIDE 100MG/10ML VIAL IVP SCH (08:28)
[2019-01-02] MEDS: POTASSIUM CHLORIDE 20MEQ TABLET SR PO SCH (08:29)
[2019-01-02] MEDS: LISINOPRIL 20MG TABLET PO SCH (08:29)
[2019-01-02] MEDS: BENZTROPINE MESYLATE 1MG TABLET PO SCH (08:29)
[2019-01-02] MEDS: ASPIRIN 81MG TABLET PO SCH (08:29)
[2019-01-02] MEDS: CARVEDILOL 6.25 MG TABLET PO SCH (08:29)
[2019-01-02 08:30] LABS: CHLORIDE 100 mEq/L (98-107)
[2019-01-02] MEDS: ENOXAPARIN 40MG/0.4ML SYR SUBCUT SCH (08:30)
[2019-01-02] MEDS ORDERED: GUAIFENESIN-DM 200MG-20MG/10ML UDC PO PRN (10:00)
[2019-01-02] MEDS ORDERED: POTASSIUM CHLORIDE 20MEQ/PACKET PO SCH (10:15)
[2019-01-02 12:00] VITALS: BP 127/82
[2019-01-02] MEDS ORDERED: FURO40TA5 PO (12:34)
[2019-01-02] MEDS ORDERED: FERR325T23 PO (12:34)
[2019-01-02] MEDS ORDERED: COR6 PO (12:34)
[2019-01-02] MEDS ORDERED: [UNRECOGNIZED DRUG - CODE] PO (12:34)
[2019-01-02 13:54] VITALS: BP 127/82
[2019-01-02] MEDS ORDERED: FUROSEMIDE 40MG TABLET PO SCH (21:00)
== END 2019-01-02 16:00 | disposition home or self-care (01) | DRG 194 ==
LOC: ER 23:37 → 5WST 12-31 09:02 → EDBEDREQ 12-31 09:11 → ENRESERV 12-31 10:35
PROVIDERS: ADMIT Internal Medicine; ATTEND Internal Medicine
DX: I11.0 Hypertensive heart disease with heart failure (principal); I42.9 Cardiomyopathy, unspecified; F20.9 Schizophrenia, unspecified; I45.81 Long QT syndrome; Z86.74 Personal history of sudden cardiac arrest; D64.9 Anemia, unspecified; E11.9 Type 2 diabetes mellitus without complications; M19.90 Unspecified osteoarthritis, unspecified site; G40.909 Epilepsy, unspecified, not intractable, without status epilepticus; E66.09 Other obesity due to excess calories; D72.829 Elevated white blood cell count, unspecified; D72.821 Monocytosis (symptomatic); E78.5 Hyperlipidemia, unspecified; I50.23 Acute on chronic systolic (congestive) heart failure; I50.82 Biventricular heart failure; E87.6 Hypokalemia; G47.33 Obstructive sleep apnea (adult) (pediatric); Z68.42 Body mass index [BMI] 45.0-49.9, adult; Z86.19 Personal history of other infectious and parasitic diseases; Z79.82 Long term (current) use of aspirin; Z79.899 Other long term (current) drug therapy
CPT/HCPCS: 36415; 71045; 80048; 80305; 82728; 82962; 83036; 83540; 83550; 83735; 83880; 84100; 84484; 93005; 93306; 93970; 94640; 97162; 99285; J1650; J1940; J7620

== ENCOUNTER 2019-03-14 09:16 | Day surgery (SDC) | payer MEDICAID ==
[~2019-03-14 09:16] MED LIST changes: +BENZ1TAB7 MT; +COR6 PO; +FERR325T23 PO; +LISI-604 MT; +[UNRECOGNIZED DRUG - CODE] PO
[2019-03-14 11:34] LABS: HEMATOCRIT 41.4 % (42.0-52.0); HEMOGLOBIN 13.9 g/dL (14.0-18.0); MEAN CORPUSCULAR HEMOGLOBIN 28.1 pg (28.0-32.0); MEAN CORPUSCULAR VOLUME 83.5 fL (80.0-94.0); PLATELET 229 x1000/uL (130-400); RED BLOOD CELL COUNT 4.96 mill/uL (4.7-6.1)
[2019-03-14 11:41] LABS: CHLORIDE 107 mEq/L (98-107); INR 1.1; PROTHROMBIN TIME 11.1 sec (9.6-11.0)
[2019-03-14] MEDS ORDERED: IOHEXOL-300 100 ML BOTTLE ONE (12:25)
[2019-03-14] MEDS ORDERED: MIDAZOLAM HCL 2 MG/2 ML VIAL ONE (13:05)
[2019-03-14] MEDS ORDERED: LIDOCAINE HCL 1% 20ML VIAL (Pyxis) INJ ONE (13:06)
[2019-03-14] MEDS ORDERED: FENTANYL CITRATE/PF 50MCG/ML 2ML VIAL ONE (13:06)
[2019-03-14] MEDS ORDERED: ONDANSETRON HCL 4MG/2ML INJ IV PRN (13:30)
[2019-03-14] MEDS ORDERED: MORPHINE SULFATE 2 MG/ML CPJ (NOT FOR IM USE) IV PRN (13:30)
[2019-03-14] MEDS ORDERED: ACETAMINOPHEN 325MG TABLET PO PRN (13:30)
== END 2019-03-14 16:40 | disposition home or self-care (01) ==
LOC: CCL 09:16
PROVIDERS: ATTEND Internal Medicine Cardiovascular Disease
DX: I42.9 Cardiomyopathy, unspecified (principal); I11.0 Hypertensive heart disease with heart failure; I50.9 Heart failure, unspecified; E11.9 Type 2 diabetes mellitus without complications; E78.5 Hyperlipidemia, unspecified; Z79.82 Long term (current) use of aspirin; Z79.899 Other long term (current) drug therapy; Z82.49 Family history of ischemic heart disease and other diseases of the circulatory system; Z83.3 Family history of diabetes mellitus; Z82.5 Family history of asthma and other chronic lower respiratory diseases
CPT/HCPCS: 36415; 80048; 85027; 85610; 93005; 93458; C1769; C1893; J1644; J2250; J3010; J3490; Q9967; A4565